=== PATIENT | female | born 1960 | race Caucasian/White ===

== ENCOUNTER 2019-07-20 16:30 | Observation (INO) ==
[2019-07-20] MEDS ORDERED: Isovue-370 500 ML BOTTLE IVP ONE (16:51)
[2019-07-20] MEDS ORDERED: *HR* FentaNYL (PF) 100 MCG/2 ML VIAL IVP ONE (16:53)
[2019-07-20 18:05] LABS: Bilirubin,Urine Moderate (Negative); Blood,Urine Large (Negative); Clarity,Urine Cloudy (Clear); Color,Urine Dark Yellow (Yellow); Glucose,Urine (UA) Normal (Normal); Ketones,Urine 15 mg/dL (Negative); Leukocyte Esterase,Urine Moderate (Negative); Nitrite,Urine Negative (Negative); Protein,Urine 30 mg/dL (Neg-Trace); Specific Gravity,Urine 1.025 (1.010-1.025); Urobilinogen,Urine Normal (Normal)
[2019-07-20 18:22] LABS: WBC,Urine 30-50 per hpf (0-3)
[2019-07-20 18:23] LABS: Bacteria,Urine Many per hpf (None-Few); Calcium Oxalate Crystals,Urine Present; Hyaline Casts,Urine Few per lpf (None-Few)
[2019-07-20 19:43] LABS: Basophils % 0.3 %; Eosinophils # 0.1 K/mcL (0.0-0.6); Eosinophils % 0.5 %; Hematocrit 31.3 % (35.3-44.9); Hemoglobin 10.3 g/dL (11.5-15.4); Immature Granulocytes % 7.5 % (0-4); Lymphocytes # 1.2 K/mcL (0.6-4.6); Lymphocytes % 12.8 %; Mean Corpuscular HGB Conc 32.9 g/dL (31.6-35.5); Mean Corpuscular Hemoglobin 28.4 pg (28.0-33.3); Mean Corpuscular Volume 86.2 fL (83.0-100.0); Monocytes % 11.1 %; Neutrophils # 6.3 K/mcL (1.6-8.9); Nucleated Red Blood Cells 0.2 /100 WBC (0); Platelet Count 324 K/mcL (140-400); Red Blood Count 3.63 M/mcL (3.82-4.97); Red Cell Distribution Width 16.5 % (11.5-14.5); Segmented Neutrophils % 67.8 %; White Blood Count 9.3 K/mcL (4.3-11.1)
[2019-07-20 20:06] LABS: Dohle Bodies Present (Not Present); Toxic Granulation Present (Not Present)
[2019-07-20 20:09] LABS: Alanine Aminotransferase 29 Units/L (7-52); Albumin 2.5 g/dL (3.5-5.7); Albumin/Globulin Ratio 0.8 (1.1-2.2); Alkaline Phosphatase 97 Units/L (34-104); Aspartate Amino Transferase 19 Units/L (13-39); BUN/Creatinine Ratio 26 (6-26); Bilirubin,Direct 0.2 mg/dL (0.0-0.2); Bilirubin,Indirect 0.3 mg/dL (0.0-1.2); Bilirubin,Total 0.5 mg/dL (0.3-1.0); Blood Urea Nitrogen 21 mg/dL (8-23); Calcium 10.6 mg/dL (8.6-10.3); Carbon Dioxide 26 mEq/L (23-29); Chloride 87 mEq/L (98-107); Globulin 3.1 g/dL (2.4-3.5); Glucose 76 mg/dL (70-105); Lipase 13 Units/L (11-82); Osmolality,Calculated 260 (280-300); Potassium 4.1 mEq/L (3.5-5.1); Sodium 124 mEq/L (136-145); Total Protein 5.6 g/dL (6.4-8.9); Troponin I < 0.03 ng/mL (< 0.04); eGFR For African Americans > 60 (> 60); eGFR For Non-African Americans > 60 (> 60)
[2019-07-20] MEDS ORDERED: 0.9 % Sodium Chloride 1,000 ML IVC ONE (22:24)
[2019-07-20] MEDS ORDERED: Ondansetron 4 MG/2 ML VIAL IVP PRN (23:13)
[2019-07-20] MEDS ORDERED: Naloxone 0.4 MG/ML INJ IVP PRN (23:13)
[2019-07-21] MEDS: *HR* Heparin 5,000 UNIT/ML VIAL SQ SCH ×3 (01:09→17:14)
[2019-07-21 01:26] LABS: Hematocrit 28.6 % (35.3-44.9); Hemoglobin 9.4 g/dL (11.5-15.4); Mean Corpuscular HGB Conc 32.9 g/dL (31.6-35.5); Mean Corpuscular Hemoglobin 28.5 pg (28.0-33.3); Mean Corpuscular Volume 86.7 fL (83.0-100.0); Mean Platelet Volume 10.3 fL (9.4-12.4); Monocytes # 1.1 K/mcL (0.0-1.3); Platelet Count 292 K/mcL (140-400); Red Cell Distribution Width 16.4 % (11.5-14.5); White Blood Count 10.7 K/mcL (4.3-11.1)
[2019-07-21 04:11] LABS: Lymphocytes # 1.1 K/mcL (0.6-4.6); Neutrophils # 8.4 K/mcL (1.6-8.9); Platelet Estimate Normal (Normal)
[2019-07-21 04:14] LABS: Dohle Bodies Present (Not Present); Toxic Granulation Present (Not Present)
[2019-07-21 04:58] LABS: Alanine Aminotransferase 23 Units/L (7-52); Albumin 2.3 g/dL (3.5-5.7); Albumin/Globulin Ratio 0.8 (1.1-2.2); Alkaline Phosphatase 85 Units/L (34-104); Aspartate Amino Transferase 16 Units/L (13-39); BUN/Creatinine Ratio 27 (6-26); Bilirubin,Total 0.3 mg/dL (0.3-1.0); Blood Urea Nitrogen 20 mg/dL (8-23); Calcium 9.5 mg/dL (8.6-10.3); Carbon Dioxide 26 mEq/L (23-29); Chloride 91 mEq/L (98-107); Globulin 2.9 g/dL (2.4-3.5); Glucose 70 mg/dL (70-105); Osmolality,Calculated 261 (280-300); Potassium 3.8 mEq/L (3.5-5.1); Sodium 125 mEq/L (136-145); Total Protein 5.2 g/dL (6.4-8.9); eGFR For African Americans > 60 (> 60); eGFR For Non-African Americans > 60 (> 60)
[2019-07-21] MEDS ORDERED: 0.9 % Sodium Chloride 1,000 ML ONE (06:28)
[2019-07-21] MEDS ORDERED: 0.9 % Sodium Chloride 1,000 ML IVC SCH (06:30)
[2019-07-21] MEDS ORDERED: Fluticasone Propionate Nasal 50 MCG/SPRAY BOTTLE NS PRN (07:37)
[2019-07-21] MEDS ORDERED: Propranolol LA (24 HR) 80 MG CAP.SA.24H PO SCH (09:00)
[2019-07-21 09:13] LABS: INR 1.3; Prothrombin Time 14.4 Seconds (9.4-12.1)
[2019-07-21] MEDS: Venlafaxine XR (24 HR) 37.5 MG CAP.ER.24H PO SCH (09:22)
[2019-07-21 09:40] LABS: Thyroid Stimulating Hormone 3.498 mcIU/mL (0.340-5.600)
[2019-07-21] MEDS: Loratadine/Pseudophed (12 HR) 1 EACH TABLET PO SCH ×2 (09:41→20:36)
[2019-07-21] MEDS: Piperacillin/Tazobactam 3.375 GM in 0.9 % Sodium Chloride Mini Bag 100 ML IVPB SCH ×2 (11:57→17:14)
[2019-07-21] MEDS ORDERED: Gadolinium Contrast Agent (WT Based) IV PRN (14:42)
[2019-07-21 20:30] LABS: BUN/Creatinine Ratio 30 (6-26); Blood Urea Nitrogen 24 mg/dL (8-23); Calcium 9.5 mg/dL (8.6-10.3); Carbon Dioxide 24 mEq/L (23-29); Chloride 89 mEq/L (98-107); Glucose 85 mg/dL (70-105); Osmolality,Calculated 263 (280-300); Potassium 3.8 mEq/L (3.5-5.1); Sodium 125 mEq/L (136-145); eGFR For African Americans > 60 (> 60); eGFR For Non-African Americans > 60 (> 60)
[2019-07-21] MEDS ORDERED: Melatonin 3 MG TABLET PO SCH (21:00)
[2019-07-21] MEDS ORDERED: Lidocaine 4% CREAM (LMX) 5 GM TP PRN (22:34)
[2019-07-22] MEDS: *HR* Heparin 5,000 UNIT/ML VIAL SQ SCH ×3 (00:32→16:54)
[2019-07-22] MEDS: Piperacillin/Tazobactam 3.375 GM in 0.9 % Sodium Chloride Mini Bag 100 ML IVPB SCH ×3 (00:33→16:54)
[2019-07-22 04:21] LABS: Hematocrit 26.2 % (35.3-44.9); Hemoglobin 8.5 g/dL (11.5-15.4); Mean Corpuscular HGB Conc 32.4 g/dL (31.6-35.5); Mean Corpuscular Hemoglobin 29.2 pg (28.0-33.3); Mean Platelet Volume 10.5 fL (9.4-12.4); Platelet Count 287 K/mcL (140-400); Red Blood Count 2.91 M/mcL (3.82-4.97); Red Cell Distribution Width 16.9 % (11.5-14.5)
[2019-07-22 04:23] LABS: White Blood Count 20.2 K/mcL (4.3-11.1)
[2019-07-22 04:38] LABS: Lymphocytes # 2.4 K/mcL (0.6-4.6); Monocytes # 0.8 K/mcL (0.0-1.3); Neutrophils # 16.6 K/mcL (1.6-8.9)
[2019-07-22 04:40] LABS: BUN/Creatinine Ratio 32 (6-26); Blood Urea Nitrogen 22 mg/dL (8-23); Calcium 8.9 mg/dL (8.6-10.3); Carbon Dioxide 24 mEq/L (23-29); Chloride 92 mEq/L (98-107); Glucose 82 mg/dL (70-105); Osmolality,Calculated 266 (280-300); Potassium 3.5 mEq/L (3.5-5.1); Sodium 127 mEq/L (136-145); eGFR For African Americans > 60 (> 60); eGFR For Non-African Americans > 60 (> 60)
[2019-07-22] MEDS ORDERED: Dexamethasone 10 MG/ML VIAL IVP ONE (07:27)
[2019-07-22] MEDS ORDERED: Pantoprazole 40 MG VIAL IVP SCH (09:00)
[2019-07-22] MEDS: Venlafaxine XR (24 HR) 37.5 MG CAP.ER.24H PO SCH (09:15)
[2019-07-22] MEDS: Loratadine/Pseudophed (12 HR) 1 EACH TABLET PO SCH (10:02)
[2019-07-22] MEDS ORDERED: dexAMETHasone 4 MG TABLET PO SCH (15:00)
[2019-07-22 15:09] VITALS: BP 101/69
== END 2019-07-22 17:23 | disposition critical access hospital (66) ==
LOC: 3ANU 16:30 → EMEROOARM 16:30 → SUATTDRO 23:30 → 3ANU 07-21 00:09
PROVIDERS: ADMIT Internal Medicine; ATTEND Internal Medicine

== ENCOUNTER 2021-02-27 12:21 | Inpatient (IN) ==
[2021-02-27] MEDS ORDERED: 0.9 % Sodium Chloride 1,000 ML IVC ONE ×2 (12:38→15:17)
[2021-02-27 13:13] LABS: Hematocrit 30.9 % (35.3-44.9); Hemoglobin 10.4 g/dL (11.5-15.4); Lymphocytes # 0.6 K/mcL (0.6-4.6); Mean Corpuscular HGB Conc 33.7 g/dL (31.6-35.5); Mean Corpuscular Hemoglobin 32.3 pg (28.0-33.3); Platelet Count 234 K/mcL (140-400); Red Blood Count 3.22 M/mcL (3.82-4.97); Red Cell Distribution Width 14.8 % (11.5-14.5)
[2021-02-27 13:34] LABS: Alanine Aminotransferase 87 Units/L (7-52); Albumin 2.8 g/dL (3.5-5.7); Albumin/Globulin Ratio 1.2 (1.1-2.2); Alkaline Phosphatase 101 Units/L (34-104); Aspartate Amino Transferase 72 Units/L (13-39); BUN/Creatinine Ratio 44 (6-26); Bilirubin,Total 0.3 mg/dL (0.3-1.0); Blood Urea Nitrogen 20 mg/dL (8-23); Carbon Dioxide 20 mEq/L (23-29); Chloride 104 mEq/L (98-107); Globulin 2.4 g/dL (2.4-3.5); Glucose 113 mg/dL (70-105); Magnesium 1.8 mg/dL (1.6-2.6); Osmolality,Calculated 271 (280-300); Potassium 4.2 mEq/L (3.5-5.1); Sodium 129 mEq/L (136-145); Total Protein 5.2 g/dL (6.4-8.9); Troponin I < 0.03 ng/mL (< 0.04); eGFR For African Americans > 60 (> 60); eGFR For Non-African Americans > 60 (> 60)
[2021-02-27 13:44] LABS: Bacteria,Urine Many per hpf (None-Few); Bilirubin,Urine Negative (Negative); Blood,Urine Negative (Negative); Clarity,Urine Turbid (Clear); Color,Urine Yellow (Yellow); Glucose,Urine (UA) Normal (Normal); Hyaline Casts,Urine Few per lpf (None Seen); Ketones,Urine Negative (Negative); Leukocyte Esterase,Urine Negative (Negative); Mucus,Urine Few per lpf (None-Few); Nitrite,Urine Negative (Negative); Protein,Urine Trace mg/dL (Neg-Trace); RBC,Urine 0-3 per hpf (0-3); Specific Gravity,Urine 1.019 (1.010-1.025); Squamous Epithelial Cell,Urine Few per hpf (None-Few); Urobilinogen,Urine Normal (Normal)
[2021-02-27 13:45] LABS: Monocytes # 1.3 K/mcL (0.0-1.3); Neutrophils # 3.1 K/mcL (1.6-8.9); Platelet Estimate Normal (Normal)
[2021-02-27] MEDS ORDERED: 0.9 % Sodium Chloride 1,000 ML ONE (15:13)
[2021-02-27] MEDS ORDERED: Isovue-370 500 ML BOTTLE IVP ONE (15:46)
[2021-02-27] MEDS ORDERED: Albumin 25% 25gram/100mL 25 GM/100 ML IV.SOLN IVPB ONE (16:26)
[2021-02-27] MEDS ORDERED: Piperacillin/Tazobactam 3.375 GM in 0.9 % Sodium Chloride Mini Bag 100 ML IVPB ONE (16:44)
[2021-02-27] MEDS ORDERED: Naloxone 0.4 MG/ML INJ IVP PRN (17:31)
[2021-02-27] MEDS ORDERED: Acetaminophen 325 MG TABLET PO PRN (17:31)
[2021-02-27] MEDS ORDERED: Vancomycin (wt based) 1,000 MG VIAL IVPB SCH (18:00)
[2021-02-27] MEDS: Norepinephrine 4 MG/254 ML IV.SOLN IVC SCH (19:04)
[2021-02-27] MEDS: Pantoprazole 40 MG VIAL IVP SCH (20:04)
[2021-02-27] MEDS: Hydrocortisone Sodium Succ 100 MG/2 ML VIAL IVP SCH (20:06)
[2021-02-27] MEDS: Melatonin 3 MG TABLET PO SCH (20:08)
[2021-02-27] MEDS: *HR* Heparin 5,000 UNIT/ML VIAL SQ SCH (20:08)
[2021-02-27] MEDS: Vancomycin Oral Soln 125 MG/2.5 ML UDC PO SCH ×2 (20:09→23:52)
[2021-02-27] MEDS ORDERED: dexAMETHasone 0.5 MG/5 ML UDC PO SCH (21:00)
[2021-02-27 21:23] LABS: Adenovirus Not Detected (Not Detect); Bordetella Pertussis Not Detected (Not Detect); Chlamydophila pneumoniae Not Detected (Not Detect); Coronavirus 229E Not Detected (Not Detect); Coronavirus HKU1 Not Detected (Not Detect); Coronavirus NL63 Not Detected (Not Detect); Coronavirus OC43 Not Detected (Not Detect); Human Metapneumovirus Not Detected (Not Detect); Human Rhinovirus/Enterovirus Not Detected (Not Detect); Influenza A Subtype 2009 H1 Not Detected (Not Detect); Influenza B Not Detected (Not Detect); Mycoplasma pneumoniae Not Detected (Not Detect); Parainfluenza Virus 1 Not Detected (Not Detect); Parainfluenza Virus 2 Not Detected (Not Detect); Parainfluenza Virus 3 Not Detected (Not Detect); Parainfluenza Virus 4 Not Detected (Not Detect); Respiratory Syncytial Virus Not Detected (Not Detect); SARS-CoV-2 Not Detected (Not Detect)
[2021-02-28] MEDS: MetroNIDAZOLE 500 MG/100 ML 500 MG/100 ML BAG IVPB SCH ×3 (00:01→15:58)
[2021-02-28 00:47] LABS: Hematocrit 30.4 % (35.3-44.9); Hemoglobin 9.6 g/dL (11.5-15.4); Mean Corpuscular HGB Conc 31.6 g/dL (31.6-35.5); Mean Corpuscular Volume 98.1 fL (83.0-100.0); Mean Platelet Volume 9.8 fL (9.4-12.4); Monocytes # 0.7 K/mcL (0.0-1.3); Nucleated Red Blood Cells 0.2 /100 WBC (0); Platelet Count 285 K/mcL (140-400); Red Cell Distribution Width 15.4 % (11.5-14.5)
[2021-02-28 00:52] LABS: White Blood Count 8.9 K/mcL (4.3-11.1)
[2021-02-28 01:05] LABS: BUN/Creatinine Ratio 31 (6-26); Blood Urea Nitrogen 15 mg/dL (8-23); Calcium 8.2 mg/dL (8.6-10.3); Carbon Dioxide 17 mEq/L (23-29); Chloride 112 mEq/L (98-107); Glucose 135 mg/dL (70-105); Magnesium 1.7 mg/dL (1.6-2.6); Osmolality,Calculated 285 (280-300); Potassium 3.8 mEq/L (3.5-5.1); Sodium 136 mEq/L (136-145); eGFR For African Americans > 60 (> 60); eGFR For Non-African Americans > 60 (> 60)
[2021-02-28 01:29] LABS: Lymphocytes # 1.3 K/mcL (0.6-4.6); Neutrophils # 6.6 K/mcL (1.6-8.9); Platelet Estimate Normal (Normal); Reactive Lymphocytes Present (Not Present)
[2021-02-28] MEDS: Norepinephrine 4 MG/254 ML IV.SOLN IVC SCH (04:30)
[2021-02-28] MEDS: *HR* Heparin 5,000 UNIT/ML VIAL SQ SCH ×2 (06:10→17:09)
[2021-02-28] MEDS: Pantoprazole 40 MG VIAL IVP SCH ×2 (06:10→17:13)
[2021-02-28] MEDS: Piperacillin/Tazobactam 3.375 GM in 0.9 % Sodium Chloride Mini Bag 100 ML IVPB SCH ×3 (08:03→15:57)
[2021-02-28] MEDS: Hydrocortisone Sodium Succ 100 MG/2 ML VIAL IVP SCH ×3 (08:12→15:57)
[2021-02-28] MEDS: Vancomycin Oral Soln 125 MG/2.5 ML UDC PO SCH ×4 (08:15→20:02)
[2021-02-28] MEDS: Multivit/Ca/Min/Fe/FA 1 TAB TABLET PO SCH (08:15)
[2021-02-28] MEDS ORDERED: Ringers Solution, Lactated 1,000 ML IVC SCH (09:45)
[2021-02-28] MEDS ORDERED: Perflutren Lipid Microsphere 1.3 ML in 0.9 % Sodium Chloride 8.7 ML IVP PRN (11:15)
[2021-02-28 15:08] LABS: VBG Ionized Calcium 1.18 mmol/L (1.15-1.35)
[2021-02-28 15:25] LABS: Phosphorous 2.6 mg/dL (2.7-4.5)
[2021-02-28 15:47] LABS: BUN/Creatinine Ratio 26 (6-26); Blood Urea Nitrogen 12 mg/dL (8-23); Calcium 7.4 mg/dL (8.6-10.3); Carbon Dioxide 17 mEq/L (23-29); Chloride 111 mEq/L (98-107); Glucose 135 mg/dL (70-105); Osmolality,Calculated 284 (280-300); Potassium 2.8 mEq/L (3.5-5.1); Sodium 136 mEq/L (136-145); eGFR For African Americans > 60 (> 60); eGFR For Non-African Americans > 60 (> 60)
[2021-02-28] MEDS: Melatonin 3 MG TABLET PO SCH (20:02)
[2021-02-28] MEDS: *HR* OxyCODONE Immed Rel 5 MG TABLET PO PRN (21:32)
[2021-02-28 21:42] LABS: Adenovirus F 40/41 PCR Not detected (Not detect); Astrovirus PCR Not detected (Not detect); Campylobacter by PCR Not detected (Not detect); Cryptosporidium by PCR Not detected (Not detect); Cyclospora cayetanensis PCR Not detected (Not detect); E. coli O157 by PCR Not detected (Not detect); Entamoeba histolytica PCR Not detected (Not detect); Enteroaggregative E.coli(EAEC) Not detected (Not detect); Enteropathogenic E.coli(EPEC) Not detected (Not detect); Enterotoxigenic E.coli (ETEC) Not detected (Not detect); Giardia lamblia PCR Not detected (Not detect); Norovirus GI/GII PCR Not detected (Not detect); Plesiomonas shigelloides PCR Not detected (Not detect); Rotavirus A PCR Not detected (Not detect); Salmonella PCR Not detected (Not detect); Sapovirus PCR Not detected (Not detect); Shig/EnteroinvasiveE coli EIEC Not detected (Not detect); Shigalike tox-prod E coli STEC Not detected (Not detect); Vibrio PCR Not detected (Not detect); Vibrio cholerae PCR Not detected (Not detect); Yersinia enterocolitica PCR Not detected (Not detect)
[2021-02-28 21:43] LABS: C.difficile Toxin A/B Gene PCR DETECTED (Not detect)
[2021-03-01] MEDS: MetroNIDAZOLE 500 MG/100 ML 500 MG/100 ML BAG IVPB SCH ×3 (00:08→16:44)
[2021-03-01] MEDS: Piperacillin/Tazobactam 3.375 GM in 0.9 % Sodium Chloride Mini Bag 100 ML IVPB SCH ×3 (00:09→16:42)
[2021-03-01] MEDS: Hydrocortisone Sodium Succ 100 MG/2 ML VIAL IVP SCH ×3 (00:10→21:24)
[2021-03-01 04:16] LABS: BUN/Creatinine Ratio 20 (6-26); Blood Urea Nitrogen 9 mg/dL (8-23); Calcium 6.9 mg/dL (8.6-10.3); Carbon Dioxide 19 mEq/L (23-29); Chloride 112 mEq/L (98-107); Glucose 129 mg/dL (70-105); Osmolality,Calculated 286 (280-300); Phosphorous 3.6 mg/dL (2.7-4.5); Potassium 2.4 mEq/L (3.5-5.1); Sodium 138 mEq/L (136-145); eGFR For African Americans > 60 (> 60); eGFR For Non-African Americans > 60 (> 60)
[2021-03-01] MEDS ORDERED: Potassium Chloride 40 MEQ/200 ML BAG IVPB PRN (04:30)
[2021-03-01] MEDS: *HR* Heparin 5,000 UNIT/ML VIAL SQ SCH ×2 (05:00→16:42)
[2021-03-01] MEDS: Pantoprazole 40 MG VIAL IVP SCH (05:02)
[2021-03-01] MEDS: Multivit/Ca/Min/Fe/FA 1 TAB TABLET PO SCH (08:14)
[2021-03-01] MEDS: *HR* OxyCODONE Immed Rel 5 MG TABLET PO PRN (08:15)
[2021-03-01] MEDS: Vancomycin Oral Soln 125 MG/2.5 ML UDC PO SCH ×4 (08:15→21:23)
[2021-03-01 09:03] LABS: Hematocrit 29.1 % (35.3-44.9); Hemoglobin 9.7 g/dL (11.5-15.4); Lymphocytes # 0.7 K/mcL (0.6-4.6); Mean Corpuscular HGB Conc 33.3 g/dL (31.6-35.5); Mean Corpuscular Hemoglobin 32.7 pg (28.0-33.3); Mean Platelet Volume 9.6 fL (9.4-12.4); Platelet Count 207 K/mcL (140-400); Red Blood Count 2.97 M/mcL (3.82-4.97); Red Cell Distribution Width 15.4 % (11.5-14.5)
[2021-03-01 09:45] LABS: White Blood Count 4.4 K/mcL (4.3-11.1)
[2021-03-01 09:54] LABS: Monocytes # 0.3 K/mcL (0.0-1.3); Neutrophils # 3.4 K/mcL (1.6-8.9); Platelet Estimate Normal (Normal)
[2021-03-01 09:55] LABS: Toxic Granulation Present (Not Present)
[2021-03-01] MEDS ORDERED: Potassium Chloride 40 MEQ in D5% in 0.9% NACL 1,000 ML IVC SCH ×2 (10:45)
[2021-03-01] MEDS ORDERED: Naloxone 0.4 MG/ML INJ IVP PRN (12:23)
[2021-03-01] MEDS ORDERED: *HR* Heparin 5,000 UNIT/ML VIAL ONE (15:39)
[2021-03-01] MEDS: Acetaminophen 325 MG TABLET PO PRN (16:43)
[2021-03-01] MEDS: Melatonin 3 MG TABLET PO SCH (21:23)
[2021-03-02] MEDS: Piperacillin/Tazobactam 3.375 GM in 0.9 % Sodium Chloride Mini Bag 100 ML IVPB SCH ×2 (00:20→09:52)
[2021-03-02] MEDS: MetroNIDAZOLE 500 MG/100 ML 500 MG/100 ML BAG IVPB SCH ×3 (00:20→17:28)
[2021-03-02 00:50] LABS: VBG Ionized Calcium 1.15 mmol/L (1.15-1.35)
[2021-03-02 00:53] LABS: Basophils % 0.3 %; Eosinophils % 0.3 %; Hematocrit 29.2 % (35.3-44.9); Hemoglobin 9.3 g/dL (11.5-15.4); Lymphocytes # 0.9 K/mcL (0.6-4.6); Lymphocytes % 14.6 %; Mean Corpuscular HGB Conc 31.8 g/dL (31.6-35.5); Mean Corpuscular Hemoglobin 31.6 pg (28.0-33.3); Mean Corpuscular Volume 99.3 fL (83.0-100.0); Mean Platelet Volume 9.5 fL (9.4-12.4); Monocytes # 0.5 K/mcL (0.0-1.3); Neutrophils # 4.1 K/mcL (1.6-8.9); Platelet Count 194 K/mcL (140-400); Red Blood Count 2.94 M/mcL (3.82-4.97); Red Cell Distribution Width 15.5 % (11.5-14.5); Segmented Neutrophils % 69.8 %; White Blood Count 5.8 K/mcL (4.3-11.1)
[2021-03-02 01:11] LABS: Hypochromasia Present (Not Present); Platelet Estimate Normal (Normal); Toxic Granulation Present (Not Present)
[2021-03-02 01:22] LABS: Alanine Aminotransferase 67 Units/L (7-52); Albumin 2.1 g/dL (3.5-5.7); Albumin/Globulin Ratio 1.3 (1.1-2.2); Alkaline Phosphatase 60 Units/L (34-104); Aspartate Amino Transferase 31 Units/L (13-39); BUN/Creatinine Ratio 20 (6-26); Bilirubin,Direct 0.1 mg/dL (0.0-0.2); Bilirubin,Indirect 0.1 mg/dL (0.0-1.0); Bilirubin,Total 0.2 mg/dL (0.3-1.0); Blood Urea Nitrogen 10 mg/dL (8-23); Calcium 6.8 mg/dL (8.6-10.3); Carbon Dioxide 18 mEq/L (23-29); Chloride 113 mEq/L (98-107); Globulin 1.6 g/dL (2.4-3.5); Glucose 167 mg/dL (70-105); Magnesium 1.7 mg/dL (1.6-2.6); Osmolality,Calculated 285 (280-300); Phosphorous 1.8 mg/dL (2.7-4.5); Potassium 3.6 mEq/L (3.5-5.1); Sodium 136 mEq/L (136-145); Total Protein 3.7 g/dL (6.4-8.9); eGFR For African Americans > 60 (> 60); eGFR For Non-African Americans > 60 (> 60)
[2021-03-02] MEDS: *HR* Heparin 5,000 UNIT/ML VIAL SQ SCH ×2 (06:08→17:27)
[2021-03-02] MEDS ORDERED: Pantoprazole 40 MG VIAL IVP SCH (09:00)
[2021-03-02] MEDS: Multivit/Ca/Min/Fe/FA 1 TAB TABLET PO SCH (09:52)
[2021-03-02] MEDS: Vancomycin Oral Soln 125 MG/2.5 ML UDC PO SCH ×4 (09:52→21:18)
[2021-03-02] MEDS: Hydrocortisone Sodium Succ 100 MG/2 ML VIAL IVP SCH (09:53)
[2021-03-02] MEDS: *HR* OxyCODONE Immed Rel 5 MG TABLET PO PRN (17:39)
[2021-03-02] MEDS ORDERED: Hydrocortisone Sodium Succ 100 MG/2 ML VIAL IVP SCH (21:00)
[2021-03-02] MEDS: Melatonin 3 MG TABLET PO SCH (21:17)
[2021-03-02] MEDS: Acetaminophen 325 MG TABLET PO PRN (21:18)
[2021-03-03] MEDS: MetroNIDAZOLE 500 MG/100 ML 500 MG/100 ML BAG IVPB SCH ×4 (00:11→23:55)
[2021-03-03 04:32] LABS: Hematocrit 28.6 % (35.3-44.9); Hemoglobin 9.1 g/dL (11.5-15.4); Mean Corpuscular HGB Conc 31.8 g/dL (31.6-35.5); Mean Corpuscular Hemoglobin 31.7 pg (28.0-33.3); Mean Corpuscular Volume 99.7 fL (83.0-100.0); Mean Platelet Volume 9.6 fL (9.4-12.4); Platelet Count 200 K/mcL (140-400); Red Blood Count 2.87 M/mcL (3.82-4.97); Red Cell Distribution Width 15.4 % (11.5-14.5); White Blood Count 7.1 K/mcL (4.3-11.1)
[2021-03-03 04:51] LABS: BUN/Creatinine Ratio 17 (6-26); Blood Urea Nitrogen 12 mg/dL (8-23); Calcium 7.5 mg/dL (8.6-10.3); Carbon Dioxide 20 mEq/L (23-29); Chloride 111 mEq/L (98-107); Glucose 111 mg/dL (70-105); Osmolality,Calculated 282 (280-300); Potassium 3.5 mEq/L (3.5-5.1); Sodium 136 mEq/L (136-145); eGFR For African Americans > 60 (> 60); eGFR For Non-African Americans > 60 (> 60)
[2021-03-03] MEDS: *HR* Heparin 5,000 UNIT/ML VIAL SQ SCH ×2 (05:34→16:35)
[2021-03-03] MEDS ORDERED: Hydrocortisone Sodium Succ 100 MG/2 ML VIAL IVP SCH (09:00)
[2021-03-03] MEDS: Vancomycin Oral Soln 125 MG/2.5 ML UDC PO SCH ×4 (09:04→20:18)
[2021-03-03] MEDS: Multivit/Ca/Min/Fe/FA 1 TAB TABLET PO SCH (09:04)
[2021-03-03] MEDS: Acetaminophen 325 MG TABLET PO PRN (09:06)
[2021-03-03] MEDS ORDERED: Hydrocortisone Sodium Succ 100 MG/2 ML VIAL IVP ONE ×2 (10:00→12:00)
[2021-03-03] MEDS: *HR* OxyCODONE Immed Rel 5 MG TABLET PO PRN ×2 (12:24→21:44)
[2021-03-03] MEDS: Melatonin 3 MG TABLET PO SCH (21:44)
[2021-03-04 05:46] LABS: Hematocrit 27.4 % (35.3-44.9); Mean Corpuscular HGB Conc 32.8 g/dL (31.6-35.5); Mean Corpuscular Hemoglobin 32.5 pg (28.0-33.3); Mean Corpuscular Volume 98.9 fL (83.0-100.0); Mean Platelet Volume 9.6 fL (9.4-12.4); Platelet Count 168 K/mcL (140-400); Red Blood Count 2.77 M/mcL (3.82-4.97); Red Cell Distribution Width 15.6 % (11.5-14.5); White Blood Count 7.2 K/mcL (4.3-11.1)
[2021-03-04] MEDS: *HR* Heparin 5,000 UNIT/ML VIAL SQ SCH (05:51)
[2021-03-04 06:08] LABS: BUN/Creatinine Ratio 24 (6-26); Blood Urea Nitrogen 13 mg/dL (8-23); Calcium 7.6 mg/dL (8.6-10.3); Carbon Dioxide 20 mEq/L (23-29); Chloride 112 mEq/L (98-107); Glucose 99 mg/dL (70-105); Osmolality,Calculated 282 (280-300); Potassium 3.2 mEq/L (3.5-5.1); Sodium 136 mEq/L (136-145); eGFR For African Americans > 60 (> 60); eGFR For Non-African Americans > 60 (> 60)
[2021-03-04 07:27] VITALS: BP 105/67
[2021-03-04] MEDS: Acetaminophen 325 MG TABLET PO PRN (08:45)
[2021-03-04] MEDS: Vancomycin Oral Soln 125 MG/2.5 ML UDC PO SCH ×2 (08:45→12:07)
[2021-03-04] MEDS: MetroNIDAZOLE 500 MG/100 ML 500 MG/100 ML BAG IVPB SCH (08:46)
[2021-03-04] MEDS: Multivit/Ca/Min/Fe/FA 1 TAB TABLET PO SCH (08:46)
[2021-03-04] MEDS ORDERED: Hydrocortisone Sodium Succ 100 MG/2 ML VIAL IVP ONE (10:00)
[2021-03-04] MEDS: *HR* OxyCODONE Immed Rel 5 MG TABLET PO PRN (12:12)
== END 2021-03-04 14:46 | disposition home health service (06) | DRG 371 ==
LOC: SUATTDRO → EMEROOARM 12:21 → 3ANU 12:21 → 2NNU 16:43 → ICNU 17:49 → SUATTDRO 18:07 → ICNU 18:27 → 3ANU 03-01 12:07
PROVIDERS: ADMIT Student in an Organized Health Care Education/Training Program; ATTEND Internal Medicine

== ENCOUNTER 2022-05-17 11:36 | Observation (INO) ==
[2022-05-17 12:51] LABS: Basophils # 0.1 K/mcL (0.0-0.2); Eosinophils # 0.2 K/mcL (0.0-0.6); Eosinophils % 2.9 %; Hematocrit 37.1 % (35.3-44.9); Immature Granulocytes % 0.2 % (0-4); Lymphocytes # 0.5 K/mcL (0.6-4.6); Mean Corpuscular HGB Conc 32.3 g/dL (31.6-35.5); Mean Corpuscular Hemoglobin 32.3 pg (28.0-33.3); Mean Corpuscular Volume 99.7 fL (83.0-100.0); Mean Platelet Volume 9.9 fL (9.4-12.4); Monocytes # 0.6 K/mcL (0.0-1.3); Monocytes % 11.3 %; Neutrophils # 3.9 K/mcL (1.6-8.9); Platelet Count 252 K/mcL (140-400); Red Blood Count 3.72 M/mcL (3.82-4.97); Red Cell Distribution Width 16.8 % (11.5-14.5); Segmented Neutrophils % 75.6 %; White Blood Count 5.2 K/mcL (4.3-11.1)
[2022-05-17 13:29] LABS: BUN/Creatinine Ratio 12 (6-26); Blood Urea Nitrogen 7 mg/dL (8-23); Calcium 11.7 mg/dL (8.6-10.3); Carbon Dioxide 18 mEq/L (23-29); Chloride 105 mEq/L (98-107); Glucose 93 mg/dL (70-105); Osmolality,Calculated 284 (280-300); Potassium 3.5 mEq/L (3.5-5.1); Sodium 138 mEq/L (136-145); eGFR For African Americans > 60 (> 60); eGFR For Non-African Americans > 60 (> 60)
[2022-05-17] MEDS ORDERED: 0.9 % Sodium Chloride 1,000 ML IVC ONE (14:31)
[2022-05-17 15:02] LABS: Bacteria,Urine Few per hpf (None-Few); Bilirubin,Urine Negative (Negative); Blood,Urine Moderate (Negative); Clarity,Urine Clear (Clear); Color,Urine Light-Yellow (Yellow); Glucose,Urine (UA) Normal (Normal); Hyaline Casts,Urine Many per lpf (None Seen); Ketones,Urine 60 mg/dL (Negative); Leukocyte Esterase,Urine Large (Negative); Mucus,Urine Few per lpf (None-Few); Nitrite,Urine Negative (Negative); Protein,Urine Trace mg/dL (Neg-Trace); RBC,Urine 15-30 per hpf (0-3); Squamous Epithelial Cell,Urine Few per hpf (None-Few); Urobilinogen,Urine Normal (Normal); WBC,Urine TNTC per hpf (0-3)
[2022-05-17] MEDS ORDERED: cefTRIAXone 1,000 MG in Water for inj. (sterile) 10 ML IVP ONE (15:31)
[2022-05-17] MEDS ORDERED: Melatonin 3 MG TABLET PO PRN (17:07)
[2022-05-17] MEDS ORDERED: Naloxone 0.4 MG/ML INJ IVP PRN (17:07)
[2022-05-17] MEDS ORDERED: Ondansetron 4 MG/2 ML VIAL IVP PRN (17:07)
[2022-05-17] MEDS ORDERED: Acetaminophen 325 MG TABLET PO PRN (17:07)
[2022-05-17] MEDS ORDERED: Morphine Sulfate 2 MG/ML SYRINGE IVP ONE (17:10)
[2022-05-17] MEDS ORDERED: Ringers Solution, Lactated 1,000 ML IVC SCH (17:45)
[2022-05-17] MEDS ORDERED: methocarbamoL 750 MG TABLET PO PRN (19:04)
[2022-05-17] MEDS ORDERED: *HR* OxyCODONE Immed Rel 5 MG TABLET PO PRN (19:04)
[2022-05-17] MEDS: *HR* Heparin 5,000 UNIT/ML VIAL SQ SCH (19:16)
[2022-05-17] MEDS: Lactobacillus 1 EACH CAP.SPRINK PO SCH (20:35)
[2022-05-17] MEDS: Melatonin 3 MG TABLET PO SCH (20:35)
[2022-05-18] MEDS ORDERED: cefTRIAXone 1,000 MG in 0.9 % Sodium Chloride 10 ML IVPB SCH (05:00)
[2022-05-18] MEDS: *HR* Heparin 5,000 UNIT/ML VIAL SQ SCH ×2 (05:05→18:27)
[2022-05-18] MEDS: Morphine Sulfate ER (12 HR) 15 MG TABLET.ER PO SCH ×2 (05:42→18:27)
[2022-05-18 05:51] LABS: Basophils % 0.8 %; Eosinophils # 0.2 K/mcL (0.0-0.6); Hematocrit 29.8 % (35.3-44.9); Immature Granulocytes % 0.3 % (0-4); Lymphocytes # 0.5 K/mcL (0.6-4.6); Mean Corpuscular HGB Conc 31.9 g/dL (31.6-35.5); Mean Corpuscular Hemoglobin 31.4 pg (28.0-33.3); Mean Corpuscular Volume 98.3 fL (83.0-100.0); Mean Platelet Volume 10.2 fL (9.4-12.4); Monocytes # 0.5 K/mcL (0.0-1.3); Monocytes % 13.5 %; Neutrophils # 2.6 K/mcL (1.6-8.9); Platelet Count 199 K/mcL (140-400); Red Blood Count 3.03 M/mcL (3.82-4.97); Red Cell Distribution Width 16.5 % (11.5-14.5); Segmented Neutrophils % 68.4 %; White Blood Count 3.8 K/mcL (4.3-11.1)
[2022-05-18 05:58] LABS: Hemoglobin 9.5 g/dL (11.5-15.4)
[2022-05-18 06:12] LABS: BUN/Creatinine Ratio 10 (6-26); Blood Urea Nitrogen 5 mg/dL (8-23); Calcium 9.7 mg/dL (8.6-10.3); Carbon Dioxide 19 mEq/L (23-29); Chloride 108 mEq/L (98-107); Glucose 80 mg/dL (70-105); Magnesium 1.2 mg/dL (1.6-2.6); Osmolality,Calculated 288 (280-300); Sodium 141 mEq/L (136-145); eGFR For African Americans > 60 (> 60); eGFR For Non-African Americans > 60 (> 60)
[2022-05-18] MEDS: Lactobacillus 1 EACH CAP.SPRINK PO SCH ×2 (07:37→21:55)
[2022-05-18] MEDS: Multivit/Ca/Min/Fe/FA 1 TAB TABLET PO SCH (07:38)
[2022-05-18] MEDS: Furosemide 40 MG TABLET PO SCH (07:38)
[2022-05-18] MEDS ORDERED: Potassium Chloride Elixir 20 MEQ/15 ML UDC PO ONE (10:50)
[2022-05-18] MEDS: 0.9 % Sodium Chloride 1,000 ML IVC SCH (18:30)
[2022-05-18] MEDS: Tobramycin/Dex Opth DROPS 2.5 ML BOTTLE RIGHT EYE SCH ×2 (18:31→21:56)
[2022-05-18] MEDS: Melatonin 3 MG TABLET PO SCH (21:55)
[2022-05-19 04:30] LABS: Hematocrit 27.5 % (35.3-44.9); Hemoglobin 8.6 g/dL (11.5-15.4); Mean Corpuscular HGB Conc 31.3 g/dL (31.6-35.5); Mean Corpuscular Hemoglobin 31.3 pg (28.0-33.3); Mean Platelet Volume 9.3 fL (9.4-12.4); Platelet Count 171 K/mcL (140-400); Red Blood Count 2.75 M/mcL (3.82-4.97); Red Cell Distribution Width 16.8 % (11.5-14.5); White Blood Count 2.7 K/mcL (4.3-11.1)
[2022-05-19 04:49] LABS: BUN/Creatinine Ratio 10 (6-26); Blood Urea Nitrogen 5 mg/dL (8-23); Calcium 8.6 mg/dL (8.6-10.3); Carbon Dioxide 19 mEq/L (23-29); Chloride 109 mEq/L (98-107); Glucose 68 mg/dL (70-105); Osmolality,Calculated 286 (280-300); Potassium 3.2 mEq/L (3.5-5.1); Sodium 140 mEq/L (136-145); eGFR For African Americans > 60 (> 60); eGFR For Non-African Americans > 60 (> 60)
[2022-05-19] MEDS: *HR* Heparin 5,000 UNIT/ML VIAL SQ SCH ×2 (06:59→17:59)
[2022-05-19] MEDS: Morphine Sulfate ER (12 HR) 15 MG TABLET.ER PO SCH ×2 (06:59→17:48)
[2022-05-19] MEDS ORDERED: cefTRIAXone 1,000 MG in 0.9 % Sodium Chloride Mini Bag 100 ML IVPB SCH (09:00)
[2022-05-19] MEDS: Lactobacillus 1 EACH CAP.SPRINK PO SCH (09:01)
[2022-05-19] MEDS: Multivit/Ca/Min/Fe/FA 1 TAB TABLET PO SCH (09:02)
[2022-05-19] MEDS: Tobramycin/Dex Opth DROPS 2.5 ML BOTTLE RIGHT EYE SCH ×3 (09:04→17:49)
[2022-05-19 09:18] LABS: Magnesium 1.6 mg/dL (1.6-2.6); Potassium 3.3 mEq/L (3.5-5.1)
[2022-05-19] MEDS: Furosemide 40 MG TABLET PO SCH (09:20)
[2022-05-19] MEDS ORDERED: Acetaminophen 325 MG TABLET PO PRN (09:49)
[2022-05-19] MEDS ORDERED: *HR* OxyCODONE Immed Rel 5 MG TABLET PO PRN (09:50)
[2022-05-19] MEDS: 0.9 % Sodium Chloride 1,000 ML IVC SCH (13:59)
[2022-05-19] MEDS ORDERED: Morphine Sulfate Oral CONC 10 MG/0.5 ML ORAL.SYG SL PRN (14:32)
[2022-05-19 15:44] VITALS: BP 116/74; PULSE 88; TEMP 99; O2SAT 98
== END 2022-05-19 18:26 | disposition home or self-care (01) ==
LOC: EMEROOARM 11:36 → 2ANU 11:36 → SUATTDRO 05-18 07:57 → 2ANU 05-18 08:45
PROVIDERS: ADMIT Internal Medicine; ATTEND Internal Medicine

== ENCOUNTER 2022-07-12 13:42 | Inpatient (IN) ==
[2022-07-12] MEDS ORDERED: Iopamidol - 370 500 ML MLS IVP ONE (17:37)
[2022-07-12] MEDS ORDERED: Ringers Solution, Lactated 1,000 ML IVC ONE (19:22)
[2022-07-12 20:05] LABS: Bilirubin,Urine Negative (Negative); Blood,Urine Trace (Negative); Clarity,Urine Clear (Clear); Color,Urine Colorless (Yellow); Glucose,Urine (UA) Normal (Normal); Ketones,Urine Negative (Negative); Leukocyte Esterase,Urine Negative (Negative); Mucus,Urine Few per lpf (None-Few); Nitrite,Urine Negative (Negative); Protein,Urine Trace mg/dL (Neg-Trace); RBC,Urine 0-3 per hpf (0-3); Specific Gravity,Urine 1.009 (1.010-1.025); Urobilinogen,Urine Normal (Normal)
[2022-07-12 20:38] LABS: Influenza A PCR Negative (Negative); Influenza B PCR Negative (Negative); Resp. Syncytial Virus PCR Negative (Negative)
[2022-07-12 20:53] LABS: Basophils % 0.1 %; Eosinophils % 0.1 %; Hematocrit 16.4 % (35.3-44.9); Immature Granulocytes % 0.4 % (0-4); Lymphocytes # 0.3 K/mcL (0.6-4.6); Lymphocytes % 4.6 %; Mean Corpuscular HGB Conc 30.5 g/dL (31.6-35.5); Mean Corpuscular Hemoglobin 29.4 pg (28.0-33.3); Mean Corpuscular Volume 96.5 fL (83.0-100.0); Mean Platelet Volume 9.6 fL (9.4-12.4); Monocytes # 0.6 K/mcL (0.0-1.3); Monocytes % 9.2 %; Neutrophils # 5.8 K/mcL (1.6-8.9); Nucleated Red Blood Cells 0.4 /100 WBC (0); Platelet Count 348 K/mcL (140-400); Red Cell Distribution Width 17.5 % (11.5-14.5); Segmented Neutrophils % 85.6 %; White Blood Count 6.8 K/mcL (4.3-11.1)
[2022-07-12 21:07] LABS: Alanine Aminotransferase 17 Units/L (7-52); Albumin 3.4 g/dL (3.5-5.7); Albumin/Globulin Ratio 1.1 (1.1-2.2); Alkaline Phosphatase 68 Units/L (34-104); Aspartate Amino Transferase 13 Units/L (13-39); BUN/Creatinine Ratio 28 (6-26); Bilirubin,Direct 0.1 mg/dL (0.0-0.2); Bilirubin,Indirect 0.2 mg/dL (0.0-1.0); Bilirubin,Total 0.3 mg/dL (0.3-1.0); Blood Urea Nitrogen 31 mg/dL (8-23); Calcium 12.9 mg/dL (8.6-10.3); Carbon Dioxide 26 mEq/L (23-29); Chloride 96 mEq/L (98-107); Globulin 3.1 g/dL (2.4-3.5); Glucose 109 mg/dL (70-105); Lipase 5 Units/L (11-82); Magnesium 1.5 mg/dL (1.6-2.6); Osmolality,Calculated 279 (280-300); Potassium 2.9 mEq/L (3.5-5.1); Sodium 131 mEq/L (136-145); Total Protein 6.5 g/dL (6.4-8.9); Troponin I < 0.03 ng/mL (< 0.04)
[2022-07-12 21:26] LABS: Anisocytosis 1+ (Not Present); Hypochromasia Present (Not Present); Large Platelets Present (Not Present); Platelet Estimate Normal (Normal); Stomatocytes 1+ (Not Present)
[2022-07-12 21:27] LABS: Microcytosis Present (Not Present)
[2022-07-12 21:52] LABS: SARS-CoV-2 by PCR (In House) Negative (Negative)
[2022-07-12] MEDS ORDERED: Potassium Chloride Elixir 20 MEQ/15 ML UDC PO ONE (22:33)
[2022-07-13] MEDS ORDERED: 0.9 % Sodium Chloride 250 ML ONE (00:27)
[2022-07-13] MEDS ORDERED: predniSONE 20 MG TABLET PO ONE (01:38)
[2022-07-13] MEDS ORDERED: Melatonin 3 MG TABLET PO PRN (01:50)
[2022-07-13] MEDS ORDERED: Naloxone 0.4 MG/ML INJ IVP PRN (01:50)
[2022-07-13] MEDS ORDERED: 0.9 % Sodium Chloride 1,000 ML IVC SCH (03:00)
[2022-07-13 05:19] LABS: Basophils % 0.2 %; Monocytes % 1.9 %
[2022-07-13 05:21] LABS: Hematocrit 18.5 % (35.3-44.9); Lymphocytes # 0.1 K/mcL (0.6-4.6); Lymphocytes % 1.2 %; Mean Corpuscular HGB Conc 30.3 g/dL (31.6-35.5); Mean Corpuscular Hemoglobin 29.2 pg (28.0-33.3); Mean Corpuscular Volume 96.4 fL (83.0-100.0); Mean Platelet Volume 9.7 fL (9.4-12.4); Monocytes # 0.1 K/mcL (0.0-1.3); Nucleated Red Blood Cells 1.7 /100 WBC (0); Platelet Count 342 K/mcL (140-400); Red Blood Count 1.92 M/mcL (3.82-4.97); Red Cell Distribution Width 17.2 % (11.5-14.5); Segmented Neutrophils % 95.7 %; White Blood Count 4.2 K/mcL (4.3-11.1)
[2022-07-13 05:30] LABS: INR 1.2; Prothrombin Time 13.3 Seconds (9.4-12.1)
[2022-07-13 05:32] LABS: Activated Partial Thrombo Time 22.5 Seconds (26.0-36.0)
[2022-07-13 05:35] LABS: % Iron Saturation 4 % (15-50); Iron 11 mcg/dL (50-170); Transferrin 216 mg/dL (203-362)
[2022-07-13 05:39] LABS: Bilirubin,Direct 0.1 mg/dL (0.0-0.2); Bilirubin,Indirect 0.2 mg/dL (0.0-1.0); Bilirubin,Total 0.3 mg/dL (0.3-1.0)
[2022-07-13 05:42] LABS: Bilirubin,Total 0.3 mg/dL (0.3-1.0); Calcium 12.6 mg/dL (8.6-10.3); Globulin 3.1 g/dL (2.4-3.5); Magnesium 1.4 mg/dL (1.6-2.6); Phosphorous 2.3 mg/dL (2.7-4.5); Potassium 3.1 mEq/L (3.5-5.1); Total Protein 6.1 g/dL (6.4-8.9)
[2022-07-13 06:01] LABS: Folate 9.2 ng/mL (3.0-16.0)
[2022-07-13 06:07] LABS: Hemoglobin 5.6 g/dL (11.5-15.4); Vitamin B12 > 1500 pg/mL (250-1100)
[2022-07-13] MEDS ORDERED: Acetaminophen 325 MG TABLET PO ONE (09:53)
[2022-07-13] MEDS: 0.9 % Sodium Chloride 1,000 ML IVC SCH ×2 (15:03→22:02)
[2022-07-13] MEDS: Acetaminophen 325 MG TABLET PO PRN (16:42)
[2022-07-13] MEDS: *HR* OxyCODONE Immed Rel 5 MG TABLET PO PRN (17:49)
[2022-07-13] MEDS: Morphine Sulfate ER (12 HR) 15 MG TABLET.ER PO SCH (17:49)
[2022-07-13 19:50] LABS: Hematocrit 19.8 % (35.3-44.9); Hemoglobin 6.4 g/dL (11.5-15.4)
[2022-07-14] MEDS: Ondansetron ODT 4 MG TAB.RAPDIS SL PRN ×2 (00:40→08:48)
[2022-07-14] MEDS: 0.9 % Sodium Chloride 1,000 ML IVC SCH (04:58)
[2022-07-14] MEDS: Morphine Sulfate ER (12 HR) 15 MG TABLET.ER PO SCH ×2 (04:59→16:22)
[2022-07-14 05:54] LABS: Hematocrit 18.6 % (35.3-44.9); Mean Corpuscular HGB Conc 32.3 g/dL (31.6-35.5); Mean Corpuscular Hemoglobin 30.5 pg (28.0-33.3); Mean Corpuscular Volume 94.4 fL (83.0-100.0); Mean Platelet Volume 9.5 fL (9.4-12.4); Platelet Count 240 K/mcL (140-400); Red Blood Count 1.97 M/mcL (3.82-4.97); Red Cell Distribution Width 16.5 % (11.5-14.5)
[2022-07-14 06:12] LABS: Albumin 2.4 g/dL (3.5-5.7); Bilirubin,Indirect 0.2 mg/dL (0.0-1.0); Bilirubin,Total 0.2 mg/dL (0.3-1.0); Calcium 9.2 mg/dL (8.6-10.3); Globulin 2.3 g/dL (2.4-3.5); Magnesium 1.8 mg/dL (1.6-2.6); Phosphorous 2.1 mg/dL (2.7-4.5); Potassium 2.6 mEq/L (3.5-5.1); Total Protein 4.7 g/dL (6.4-8.9)
[2022-07-14] MEDS: Acetaminophen 325 MG TABLET PO PRN (08:48)
[2022-07-14] MEDS ORDERED: 0.9 % Sodium Chloride 250 ML ONE (08:49)
[2022-07-14] MEDS ORDERED: *HR* Promethazine 25 MG/ML VIAL IM PRN (09:00)
[2022-07-14] MEDS ORDERED: methocarbamoL 750 MG TABLET PO PRN (10:55)
[2022-07-14] MEDS ORDERED: Ondansetron 4 MG/2 ML VIAL IVP SCH (12:00)
[2022-07-14 13:26] LABS: Hematocrit 26.7 % (35.3-44.9)
[2022-07-14 13:30] LABS: Basophils % 0.1 %; Eosinophils % 0.4 %; Immature Granulocytes % 0.4 % (0-4); Lymphocytes # 0.3 K/mcL (0.6-4.6); Lymphocytes % 4.7 %; Mean Corpuscular Volume 91.1 fL (83.0-100.0); Mean Platelet Volume 8.9 fL (9.4-12.4); Monocytes # 0.6 K/mcL (0.0-1.3); Monocytes % 7.8 %; Neutrophils # 6.2 K/mcL (1.6-8.9); Platelet Count 266 K/mcL (140-400); Red Blood Count 2.93 M/mcL (3.82-4.97); Segmented Neutrophils % 86.6 %; White Blood Count 7.2 K/mcL (4.3-11.1)
[2022-07-14 13:32] LABS: Hemoglobin 8.7 g/dL (11.5-15.4)
[2022-07-14 13:33] LABS: Bacteria,Urine Few per hpf (None-Few); Bilirubin,Urine Negative (Negative); Blood,Urine Small (Negative); Clarity,Urine Clear (Clear); Color,Urine Light-Yellow (Yellow); Glucose,Urine (UA) Normal (Normal); Ketones,Urine Negative (Negative); Leukocyte Esterase,Urine Negative (Negative); Nitrite,Urine Negative (Negative); Protein,Urine Negative (Neg-Trace); Specific Gravity,Urine 1.011 (1.010-1.025); Urobilinogen,Urine Normal (Normal); WBC,Urine 0-3 per hpf (0-3)
[2022-07-14] MEDS ORDERED: *HR* Promethazine 25 MG/ML VIAL IM ONE (13:33)
[2022-07-14 14:00] LABS: Calcium 9.3 mg/dL (8.6-10.3); Potassium 3.5 mEq/L (3.5-5.1)
[2022-07-14] MEDS: Ondansetron 4 MG/2 ML VIAL IVP SCH ×2 (16:24→20:10)
[2022-07-14] MEDS ORDERED: Mirtazapine 15 MG TABLET PO SCH (21:00)
[2022-07-14] MEDS ORDERED: NON-FORMULARY MEDICATION 1 EACH EACH (Calcium Carbonate/Vitamin D3 [Calcium 600 + Vit D So PO SCH (21:00)
[2022-07-14 22:33] LABS: Hematocrit 24.7 % (35.3-44.9); Hemoglobin 7.9 g/dL (11.5-15.4)
[2022-07-15] MEDS: Ondansetron 4 MG/2 ML VIAL IVP SCH ×7 (01:15→23:38)
[2022-07-15 03:30] LABS: Eosinophils # 0.1 K/mcL (0.0-0.6); Eosinophils % 1.2 %; Hematocrit 24.6 % (35.3-44.9); Hemoglobin 7.9 g/dL (11.5-15.4); Immature Granulocytes % 0.5 % (0-4); Lymphocytes # 0.4 K/mcL (0.6-4.6); Lymphocytes % 6.4 %; Mean Corpuscular HGB Conc 32.1 g/dL (31.6-35.5); Mean Corpuscular Hemoglobin 29.5 pg (28.0-33.3); Mean Corpuscular Volume 91.8 fL (83.0-100.0); Mean Platelet Volume 9.4 fL (9.4-12.4); Monocytes # 0.4 K/mcL (0.0-1.3); Monocytes % 6.8 %; Neutrophils # 4.9 K/mcL (1.6-8.9); Nucleated Red Blood Cells 0.3 /100 WBC (0); Platelet Count 264 K/mcL (140-400); Red Blood Count 2.68 M/mcL (3.82-4.97); Segmented Neutrophils % 85.1 %; White Blood Count 5.7 K/mcL (4.3-11.1)
[2022-07-15 03:57] LABS: Calcium 8.4 mg/dL (8.6-10.3); Potassium 3.7 mEq/L (3.5-5.1)
[2022-07-15] MEDS: Morphine Sulfate ER (12 HR) 15 MG TABLET.ER PO SCH ×2 (04:07→16:07)
[2022-07-15] MEDS: 0.9 % Sodium Chloride 1,000 ML IVC SCH ×3 (07:01→17:00)
[2022-07-15] MEDS ORDERED: *HR* Dextrose 25% in Water (Syg) 10 ML SYRINGE IVP STA (07:41)
[2022-07-15] MEDS ORDERED: Dextrose Gel 15 GM/37.5 ML TUBE PO PRN ×2 (07:43)
[2022-07-15] MEDS ORDERED: D5% in Water 1,000 ML IVC PRN (07:43)
[2022-07-15] MEDS ORDERED: *HR* Dextrose 50 % in Water (Syg) 50 ML SYRINGE IVP PRN (07:43)
[2022-07-15] MEDS: Cyanocobalamin (B-12) 1,000 MCG TABLET PO SCH (07:57)
[2022-07-15] MEDS: Lactobacillus 1 EACH CAP.SPRINK PO SCH (07:57)
[2022-07-15] MEDS: Multivit/Ca/Min/Fe/FA 1 TAB TABLET PO SCH (07:57)
[2022-07-15] MEDS ORDERED: Furosemide 40 MG TABLET PO SCH (09:00)
[2022-07-15] MEDS ORDERED: Cholecalciferol (D-3) 1,000 UNIT (25MCG) TABLET PO SCH (09:00)
[2022-07-15] MEDS: Potassium Chloride 10 MEQ in D5% in 0.9% NACL 1,000 ML IVC SCH ×2 (09:15→23:38)
[2022-07-15 09:21] LABS: Magnesium 2.2 mg/dL (1.6-2.6); Phosphorous 3.4 mg/dL (2.7-4.5)
[2022-07-15] MEDS: dexAMETHasone 0.5 MG/5 ML UDC PO SCH ×3 (09:58→20:01)
[2022-07-15] MEDS: Stomatitis Mixture 5 ML UDC PO SCH ×4 (09:58→20:04)
[2022-07-15] MEDS: Iron Sucrose Complex 250 MG in 0.9 % Sodium Chloride 250 ML IVPB SCH (11:48)
[2022-07-15] MEDS: *HR* OxyCODONE Immed Rel 5 MG TABLET PO PRN (14:07)
[2022-07-15] MEDS: Mirtazapine 15 MG TABLET PO SCH (20:00)
[2022-07-16 03:59] LABS: Basophils % 0.2 %; Eosinophils % 0.2 %; Hematocrit 22.4 % (35.3-44.9); Hemoglobin 7.2 g/dL (11.5-15.4); Immature Granulocytes % 0.6 % (0-4); Lymphocytes # 0.2 K/mcL (0.6-4.6); Lymphocytes % 4.4 %; Mean Corpuscular HGB Conc 32.1 g/dL (31.6-35.5); Mean Corpuscular Hemoglobin 29.1 pg (28.0-33.3); Mean Corpuscular Volume 90.7 fL (83.0-100.0); Mean Platelet Volume 9.3 fL (9.4-12.4); Monocytes # 0.3 K/mcL (0.0-1.3); Monocytes % 6.7 %; Neutrophils # 4.2 K/mcL (1.6-8.9); Platelet Count 240 K/mcL (140-400); Red Blood Count 2.47 M/mcL (3.82-4.97); Red Cell Distribution Width 17.5 % (11.5-14.5); Segmented Neutrophils % 87.9 %; White Blood Count 4.8 K/mcL (4.3-11.1)
[2022-07-16 04:43] LABS: Calcium 7.7 mg/dL (8.6-10.3); Magnesium 1.5 mg/dL (1.6-2.6); Phosphorous 1.5 mg/dL (2.7-4.5); Potassium 3.4 mEq/L (3.5-5.1)
[2022-07-16] MEDS: Ondansetron 4 MG/2 ML VIAL IVP SCH ×5 (04:52→19:33)
[2022-07-16] MEDS: Morphine Sulfate ER (12 HR) 15 MG TABLET.ER PO SCH ×2 (04:52→16:32)
[2022-07-16] MEDS: *HR* OxyCODONE Immed Rel 5 MG TABLET PO PRN (08:58)
[2022-07-16] MEDS: dexAMETHasone 0.5 MG/5 ML UDC PO SCH ×3 (08:58→19:34)
[2022-07-16] MEDS: Stomatitis Mixture 5 ML UDC PO SCH ×4 (08:59→19:35)
[2022-07-16] MEDS: Lactobacillus 1 EACH CAP.SPRINK PO SCH (08:59)
[2022-07-16] MEDS: Cyanocobalamin (B-12) 1,000 MCG TABLET PO SCH (08:59)
[2022-07-16] MEDS: Multivit/Ca/Min/Fe/FA 1 TAB TABLET PO SCH (08:59)
[2022-07-16] MEDS: Iron Sucrose Complex 250 MG in 0.9 % Sodium Chloride 250 ML IVPB SCH (09:09)
[2022-07-16] MEDS: Potassium Chloride 10 MEQ in D5% in 0.9% NACL 1,000 ML IVC SCH (13:00)
[2022-07-16] MEDS: Mirtazapine 15 MG TABLET PO SCH (19:34)
[2022-07-17] MEDS: Ondansetron 4 MG/2 ML VIAL IVP SCH ×7 (00:15→23:10)
[2022-07-17 03:58] LABS: Basophils % 0.2 %; Eosinophils # 0.1 K/mcL (0.0-0.6); Hematocrit 22.7 % (35.3-44.9); Hemoglobin 7.2 g/dL (11.5-15.4); Immature Granulocytes % 2.1 % (0-4); Lymphocytes # 0.3 K/mcL (0.6-4.6); Lymphocytes % 5.3 %; Mean Corpuscular HGB Conc 31.7 g/dL (31.6-35.5); Mean Corpuscular Hemoglobin 28.9 pg (28.0-33.3); Mean Corpuscular Volume 91.2 fL (83.0-100.0); Mean Platelet Volume 9.6 fL (9.4-12.4); Monocytes # 0.5 K/mcL (0.0-1.3); Monocytes % 8.4 %; Neutrophils # 4.8 K/mcL (1.6-8.9); Nucleated Red Blood Cells 0.5 /100 WBC (0); Platelet Count 286 K/mcL (140-400); Red Blood Count 2.49 M/mcL (3.82-4.97); Red Cell Distribution Width 17.2 % (11.5-14.5); White Blood Count 5.8 K/mcL (4.3-11.1)
[2022-07-17 04:12] LABS: Calcium 7.8 mg/dL (8.6-10.3); Magnesium 1.8 mg/dL (1.6-2.6); Phosphorous 1.2 mg/dL (2.7-4.5); Potassium 3.6 mEq/L (3.5-5.1)
[2022-07-17] MEDS: Morphine Sulfate ER (12 HR) 15 MG TABLET.ER PO SCH ×2 (05:31→17:39)
[2022-07-17] MEDS ORDERED: 0.9 % Sodium Chloride 500 ML ONE (05:39)
[2022-07-17] MEDS: Lactobacillus 1 EACH CAP.SPRINK PO SCH (08:22)
[2022-07-17] MEDS: Cyanocobalamin (B-12) 1,000 MCG TABLET PO SCH (08:22)
[2022-07-17] MEDS: Multivit/Ca/Min/Fe/FA 1 TAB TABLET PO SCH (08:22)
[2022-07-17] MEDS: dexAMETHasone 0.5 MG/5 ML UDC PO SCH ×4 (08:23→21:51)
[2022-07-17] MEDS: Stomatitis Mixture 5 ML UDC PO SCH ×4 (08:23→20:00)
[2022-07-17] MEDS: Iron Sucrose Complex 250 MG in 0.9 % Sodium Chloride 250 ML IVPB SCH (10:45)
[2022-07-17 19:22] LABS: Hematocrit 24.6 % (35.3-44.9); Hemoglobin 7.9 g/dL (11.5-15.4)
[2022-07-17] MEDS: *HR* OxyCODONE Immed Rel 5 MG TABLET PO PRN (19:59)
[2022-07-17] MEDS: Mirtazapine 15 MG TABLET PO SCH (19:59)
[2022-07-18 02:51] LABS: Basophils % 0.2 %; Eosinophils # 0.1 K/mcL (0.0-0.6); Hematocrit 24.6 % (35.3-44.9); Hemoglobin 7.8 g/dL (11.5-15.4); Immature Granulocytes % 1.7 % (0-4); Lymphocytes # 0.3 K/mcL (0.6-4.6); Lymphocytes % 4.2 %; Mean Corpuscular HGB Conc 31.7 g/dL (31.6-35.5); Mean Corpuscular Hemoglobin 29.2 pg (28.0-33.3); Mean Corpuscular Volume 92.1 fL (83.0-100.0); Mean Platelet Volume 9.8 fL (9.4-12.4); Monocytes # 0.6 K/mcL (0.0-1.3); Monocytes % 7.4 %; Neutrophils # 6.9 K/mcL (1.6-8.9); Nucleated Red Blood Cells 0.2 /100 WBC (0); Platelet Count 335 K/mcL (140-400); Red Blood Count 2.67 M/mcL (3.82-4.97); Red Cell Distribution Width 17.5 % (11.5-14.5); Segmented Neutrophils % 85.5 %; White Blood Count 8.1 K/mcL (4.3-11.1)
[2022-07-18 03:11] LABS: BUN/Creatinine Ratio 14 (6-26); Blood Urea Nitrogen 10 mg/dL (8-23); Calcium 7.8 mg/dL (8.6-10.3); Carbon Dioxide 20 mEq/L (23-29); Chloride 111 mEq/L (98-107); Glucose 86 mg/dL (70-105); Magnesium 1.8 mg/dL (1.6-2.6); Osmolality,Calculated 278 (280-300); Phosphorous 1.3 mg/dL (2.7-4.5); Potassium 3.9 mEq/L (3.5-5.1); Sodium 135 mEq/L (136-145)
[2022-07-18] MEDS: Morphine Sulfate ER (12 HR) 15 MG TABLET.ER PO SCH (05:09)
[2022-07-18] MEDS: Ondansetron 4 MG/2 ML VIAL IVP SCH ×3 (05:09→11:44)
[2022-07-18 06:54] VITALS: BP 153/71; PULSE 95; TEMP 97.3; O2SAT 97
[2022-07-18] MEDS: Multivit/Ca/Min/Fe/FA 1 TAB TABLET PO SCH (07:49)
[2022-07-18] MEDS: Cyanocobalamin (B-12) 1,000 MCG TABLET PO SCH (07:50)
[2022-07-18] MEDS: Lactobacillus 1 EACH CAP.SPRINK PO SCH (07:50)
[2022-07-18] MEDS: *HR* OxyCODONE Immed Rel 5 MG TABLET PO PRN (07:52)
[2022-07-18] MEDS: Stomatitis Mixture 5 ML UDC PO SCH ×2 (07:53→11:44)
[2022-07-18] MEDS: dexAMETHasone 0.5 MG/5 ML UDC PO SCH (07:53)
== END 2022-07-18 12:25 | disposition home or self-care (01) | DRG 812 ==
LOC: 2NENU 13:42 → EMEROOARM 13:42 → SUATTDRO 07-13 00:23 → 2NENU 07-13 03:40
PROVIDERS: ADMIT Internal Medicine; ATTEND Pharmacist

== ENCOUNTER 2022-07-22 08:15 | Inpatient (IN) ==
[2022-07-22] MEDS ORDERED: Ondansetron 4 MG/2 ML VIAL IVP ONE ×2 (08:46→14:43)
[2022-07-22] MEDS ORDERED: 0.9 % Sodium Chloride 1,000 ML IVC ONE (08:46)
[2022-07-22] MEDS ORDERED: Morphine Sulfate 2 MG/ML SYRINGE IVP ONE (08:46)
[2022-07-22] MEDS ORDERED: Iopamidol - 370 500 ML MLS IVP ONE (08:47)
[2022-07-22 09:09] LABS: Bilirubin,Urine Negative (Negative); Blood,Urine Moderate (Negative); Clarity,Urine Clear (Clear); Color,Urine Colorless (Yellow); Glucose,Urine (UA) Normal (Normal); Ketones,Urine Negative (Negative); Leukocyte Esterase,Urine Trace (Negative); Mucus,Urine Few per lpf (None-Few); Nitrite,Urine Negative (Negative); PH,Urine 6.5 pH Units (5.0-8.0); Protein,Urine Negative (Neg-Trace); RBC,Urine 30-50 per hpf (0-3); Squamous Epithelial Cell,Urine Few per hpf (None-Few); Urobilinogen,Urine Normal (Normal); WBC,Urine 15-30 per hpf (0-3)
[2022-07-22 09:11] LABS: Basophils % 0.2 %
[2022-07-22 09:13] LABS: Lymphocytes % 5.5 %
[2022-07-22 09:16] LABS: Eosinophils % 0.5 %; Hematocrit 33.6 % (35.3-44.9); Hemoglobin 10.6 g/dL (11.5-15.4); Immature Granulocytes % 0.6 % (0-4); Immature Platelets 1.6 % (1.1-6.1); Lymphocytes # 0.5 K/mcL (0.6-4.6); Mean Corpuscular HGB Conc 31.5 g/dL (31.6-35.5); Mean Corpuscular Hemoglobin 30.2 pg (28.0-33.3); Mean Corpuscular Volume 95.7 fL (83.0-100.0); Mean Platelet Volume 9.8 fL (9.4-12.4); Monocytes # 0.3 K/mcL (0.0-1.3); Monocytes % 3.9 %; Neutrophils # 7.4 K/mcL (1.6-8.9); Platelet Count 375 K/mcL (140-400); Red Blood Count 3.51 M/mcL (3.82-4.97); Segmented Neutrophils % 89.3 %; White Blood Count 8.3 K/mcL (4.3-11.1)
[2022-07-22 10:06] LABS: Potassium 3.5 mEq/L (3.5-5.1)
[2022-07-22 10:40] LABS: Albumin 3.4 g/dL (3.5-5.7); Albumin/Globulin Ratio 1.1 (1.1-2.2); Bilirubin,Direct 0.1 mg/dL (0.0-0.2); Bilirubin,Indirect 0.3 mg/dL (0.0-1.0); Bilirubin,Total 0.4 mg/dL (0.3-1.0); Globulin 3.1 g/dL (2.4-3.5); Total Protein 6.5 g/dL (6.4-8.9)
[2022-07-22] MEDS ORDERED: Piperacillin/Tazobactam 3.375 GM in 0.9 % Sodium Chloride Mini Bag 100 ML IVPB ONE (11:45)
[2022-07-22] MEDS ORDERED: Ondansetron 4 MG/2 ML VIAL IVP PRN ×2 (14:05→20:11)
[2022-07-22] MEDS ORDERED: Naloxone 0.4 MG/ML INJ IVP PRN (14:05)
[2022-07-22] MEDS ORDERED: Morphine Sulfate 2 MG/ML SYRINGE IVP PRN (14:06)
[2022-07-22] MEDS ORDERED: 0.9 % Sodium Chloride 1,000 ML IVC SCH (14:15)
[2022-07-22] MEDS ORDERED: *HR* HYDROmorphone (PF) 1 MG/ML SYRINGE IVP STA (14:42)
[2022-07-22] MEDS ORDERED: Ringers Solution, Lactated 1,000 ML IVC SCH (14:45)
[2022-07-22] MEDS: *HR* HYDROmorphone 2 MG/ML SYRINGE IVP PRN ×2 (17:28→18:35)
[2022-07-22] MEDS ORDERED: Pantoprazole 40 MG VIAL IVP SCH (18:00)
[2022-07-22] MEDS: Pantoprazole 40 MG VIAL IVP SCH (18:34)
[2022-07-22] MEDS ORDERED: Lidocaine -MPF 2% 2 ML VIAL ONE (19:12)
[2022-07-22] MEDS ORDERED: *HR* FentaNYL (PF) 100 MCG/2 ML VIAL ONE (19:12)
[2022-07-22] MEDS ORDERED: Ondansetron 4 MG/2 ML VIAL ONE (19:12)
[2022-07-22] MEDS ORDERED: *HR* Rocuronium Bromide 50 MG/5 ML VIAL ONE (19:12)
[2022-07-22] MEDS ORDERED: *HR* Propofol 200 MG/20 ML VIAL IVP ONE (19:12)
[2022-07-22] MEDS ORDERED: *HR* Midazolam HCl 2 MG/2 ML VIAL ONE (19:12)
[2022-07-22] MEDS ORDERED: Ketamine HCL *QUVA* 50mg (1mL) SYRINGE ONE (19:12)
[2022-07-22] MEDS ORDERED: Famotidine 20 MG/2 ML VIAL IVP ONE (19:13)
[2022-07-22] MEDS ORDERED: Acetaminophen IV 1,000 MG/100 ML BAG IVPB ONE ×2 (19:14→19:19)
[2022-07-22] MEDS ORDERED: Famotidine 20 MG/2 ML VIAL ONE (19:19)
[2022-07-22] MEDS ORDERED: *HR* HYDROmorphone PF 0.5 MG/0.5 ML SYRINGE IVP PRN (19:43)
[2022-07-22] MEDS ORDERED: *HR* Magnesium Sulfate 1 GM/2 ML VIAL ONE (21:25)
[2022-07-22] MEDS ORDERED: *HR* HYDROMORPHONE 2 MG/ML VIAL ONE (21:50)
[2022-07-22] MEDS ORDERED: Sugammadex Sodium 200 MG/2 ML VIAL IV ONE (21:51)
[2022-07-23] MEDS: Pantoprazole 40 MG VIAL IVP SCH (05:23)
[2022-07-23] MEDS: *HR* HYDROmorphone 2 MG/ML SYRINGE IVP PRN (05:55)
[2022-07-23 07:01] LABS: Basophils % 0.1 %; Hematocrit 26.2 % (35.3-44.9); Immature Granulocytes % 0.6 % (0-4); Lymphocytes # 0.2 K/mcL (0.6-4.6); Lymphocytes % 1.6 %; Mean Corpuscular HGB Conc 31.7 g/dL (31.6-35.5); Mean Corpuscular Hemoglobin 30.6 pg (28.0-33.3); Mean Corpuscular Volume 96.7 fL (83.0-100.0); Mean Platelet Volume 8.9 fL (9.4-12.4); Monocytes # 0.4 K/mcL (0.0-1.3); Monocytes % 2.6 %; Neutrophils # 12.9 K/mcL (1.6-8.9); Platelet Count 282 K/mcL (140-400); Red Blood Count 2.71 M/mcL (3.82-4.97); Segmented Neutrophils % 95.1 %
[2022-07-23 07:03] LABS: BUN/Creatinine Ratio 19 (6-26); Blood Urea Nitrogen 13 mg/dL (8-23); Calcium 8.2 mg/dL (8.6-10.3); Carbon Dioxide 23 mEq/L (23-29); Chloride 108 mEq/L (98-107); Glucose 98 mg/dL (70-105); Osmolality,Calculated 282 (280-300); Potassium 3.2 mEq/L (3.5-5.1); Sodium 136 mEq/L (136-145)
[2022-07-23 07:04] LABS: Hemoglobin 8.3 g/dL (11.5-15.4); White Blood Count 13.6 K/mcL (4.3-11.1)
[2022-07-23] MEDS ORDERED: Ringers Solution, Lactated 1,000 ML IVC SCH (07:05)
[2022-07-23] MEDS ORDERED: Naloxone 0.4 MG/ML INJ IVP PRN (07:05)
[2022-07-23] MEDS ORDERED: *HR* HYDROmorphone 2 MG/ML SYRINGE IVP PRN (07:05)
[2022-07-23] MEDS ORDERED: Piperacillin/Tazobactam 3.375 GM in 0.9 % Sodium Chloride Mini Bag 100 ML IVPB ONE ×2 (07:15→20:27)
[2022-07-23] MEDS: Fluconazole 400 MG/200 ML 400 MG/200 ML BAG IVPB SCH (08:35)
[2022-07-23] MEDS: Ketorolac 30 MG/ML VIAL IVP SCH ×3 (08:36→17:41)
[2022-07-23] MEDS: Pantoprazole 40 MG in 0.9 % Sodium Chloride Mini Bag 100 ML IVC SCH ×2 (08:37→15:55)
[2022-07-23] MEDS ORDERED: Chloraseptic Spray 177 ML BOTTLE MM PRN (09:18)
[2022-07-23] MEDS ORDERED: Saliva Stimulant 44.3ml BOTTLE PO PRN (09:18)
[2022-07-23] MEDS ORDERED: *HR* HYDROmorphone PCA *PREMADE* 20 MG/1MG/ML (20mL) PCA VIAL IVC PRN (09:21)
[2022-07-23] MEDS: 0.9 % Sodium Chloride 1,000 ML IVC SCH ×2 (10:19→20:32)
[2022-07-23] MEDS: Acetaminophen IV 1,000 MG/100 ML BAG IVPB SCH ×2 (11:39→17:32)
[2022-07-23 11:52] LABS: Magnesium 2.1 mg/dL (1.6-2.6); Phosphorous 3.6 mg/dL (2.7-4.5)
[2022-07-23] MEDS ORDERED: D10% in Water 500 ML IVC PRN (12:23)
[2022-07-23] MEDS ORDERED: Clinimix E 5%-15% SOLUTION 2,000 ML with MVI, adult with vitamin K 10 ML IVC SCH (17:00)
[2022-07-23] MEDS ORDERED: Fat Emulsion 250 ML IVPB SCH (17:00)
[2022-07-23] MEDS: Piperacillin/Tazobactam 3.375 GM in 0.9 % Sodium Chloride Mini Bag 100 ML IVPB SCH (17:37)
[2022-07-23] MEDS ORDERED: *HR* Dextrose 50 % in Water (Syg) 50 ML SYRINGE IVP PRN (17:37)
[2022-07-23] MEDS ORDERED: Dextrose Gel 15 GM/37.5 ML TUBE PO PRN ×2 (17:37)
[2022-07-23] MEDS ORDERED: D5% in Water 1,000 ML IVC PRN (17:37)
[2022-07-23 21:50] LABS: Hematocrit 22.3 % (35.3-44.9); Hemoglobin 7.1 g/dL (11.5-15.4); Immature Granulocytes % 0.3 % (0-4); Immature Reticulocyte % 14.1 % (11.0-38.0); Lymphocytes # 0.1 K/mcL (0.6-4.6); Lymphocytes % 1.6 %; Mean Corpuscular HGB Conc 31.8 g/dL (31.6-35.5); Mean Corpuscular Hemoglobin 30.7 pg (28.0-33.3); Mean Corpuscular Volume 96.5 fL (83.0-100.0); Mean Platelet Volume 9.5 fL (9.4-12.4); Monocytes # 0.1 K/mcL (0.0-1.3); Monocytes % 1.4 %; Platelet Count 242 K/mcL (140-400); Red Blood Count 2.31 M/mcL (3.82-4.97); Red Cell Distribution Width 20.3 % (11.5-14.5); Reticulocyte % 4.5 % (1.6-2.8); Segmented Neutrophils % 96.7 %; White Blood Count 8.7 K/mcL (4.3-11.1)
[2022-07-23 21:52] LABS: Neutrophils # 8.4 K/mcL (1.6-8.9)
[2022-07-23 22:08] LABS: % Iron Saturation 9 % (15-50); Iron 16 mcg/dL (50-170); Lactate Dehydrogenase 122 Units/L (140-271); Transferrin 121 mg/dL (203-362)
[2022-07-23 22:16] LABS: Anisocytosis 2+ (Not Present); Microcytosis Present (Not Present); Platelet Estimate Normal (Normal); Poikilocytosis 1+ (Not Present); Polychromasia 1+ (Not Present); Schistocytes 1+ (Not Present)
[2022-07-23 22:23] LABS: Thyroid Stimulating Hormone 0.394 mcIU/mL (0.340-5.600)
[2022-07-23 22:28] LABS: Ferritin > 1500 ng/mL (10-120)
[2022-07-24] MEDS: Ketorolac 30 MG/ML VIAL IVP SCH ×2 (00:17→05:38)
[2022-07-24] MEDS: Acetaminophen IV 1,000 MG/100 ML BAG IVPB SCH ×5 (00:18→23:43)
[2022-07-24] MEDS: Piperacillin/Tazobactam 3.375 GM in 0.9 % Sodium Chloride Mini Bag 100 ML IVPB SCH ×3 (02:06→17:47)
[2022-07-24] MEDS: Pantoprazole 40 MG in 0.9 % Sodium Chloride Mini Bag 100 ML IVC SCH ×3 (02:11→02:17)
[2022-07-24 06:24] LABS: BUN/Creatinine Ratio 27 (6-26); Blood Urea Nitrogen 17 mg/dL (8-23); Carbon Dioxide 20 mEq/L (23-29); Chloride 110 mEq/L (98-107); Glucose 158 mg/dL (70-105); Magnesium 1.9 mg/dL (1.6-2.6); Osmolality,Calculated 287 (280-300); Phosphorous 2.4 mg/dL (2.7-4.5); Potassium 3.1 mEq/L (3.5-5.1); Sodium 136 mEq/L (136-145); Triglycerides 106 mg/dL (< 150)
[2022-07-24] MEDS: Pantoprazole 40 MG VIAL IVP SCH ×2 (06:30→17:46)
[2022-07-24] MEDS: Fluconazole 400 MG/200 ML 400 MG/200 ML BAG IVPB SCH (08:52)
[2022-07-24 09:26] LABS: Hematocrit 21.9 % (35.3-44.9); Hemoglobin 6.9 g/dL (11.5-15.4); Immature Granulocytes % 0.5 % (0-4); Lymphocytes # 0.2 K/mcL (0.6-4.6); Lymphocytes % 1.9 %; Mean Corpuscular HGB Conc 31.5 g/dL (31.6-35.5); Mean Corpuscular Hemoglobin 30.8 pg (28.0-33.3); Mean Corpuscular Volume 97.8 fL (83.0-100.0); Mean Platelet Volume 9.6 fL (9.4-12.4); Monocytes # 0.3 K/mcL (0.0-1.3); Monocytes % 3.3 %; Platelet Count 202 K/mcL (140-400); Red Blood Count 2.24 M/mcL (3.82-4.97); Red Cell Distribution Width 20.4 % (11.5-14.5); Segmented Neutrophils % 94.3 %; White Blood Count 9.2 K/mcL (4.3-11.1)
[2022-07-24 09:39] LABS: Neutrophils # 8.7 K/mcL (1.6-8.9); Platelet Estimate Normal (Normal)
[2022-07-24 11:26] LABS: Hematocrit 21.8 % (35.3-44.9); Hemoglobin 6.8 g/dL (11.5-15.4)
[2022-07-24] MEDS: Insulin LISPRO 300 UNITS/3 ML VIAL SUBQ SCH ×3 (11:58→20:45)
[2022-07-24] MEDS ORDERED: 0.9 % Sodium Chloride 250 ML ONE (12:39)
[2022-07-24] MEDS ORDERED: Clinimix E 5%-15% SOLUTION 2,000 ML with MVI, adult with vitamin K 10 ML IVC SCH (17:00)
[2022-07-24 18:09] LABS: Hematocrit 26.7 % (35.3-44.9)
[2022-07-24 18:10] LABS: Hemoglobin 8.6 g/dL (11.5-15.4)
[2022-07-25] MEDS: Insulin LISPRO 300 UNITS/3 ML VIAL SUBQ SCH ×6 (00:19→20:37)
[2022-07-25] MEDS: Piperacillin/Tazobactam 3.375 GM in 0.9 % Sodium Chloride Mini Bag 100 ML IVPB SCH ×3 (01:41→17:30)
[2022-07-25] MEDS: Pantoprazole 40 MG VIAL IVP SCH ×2 (05:59→17:29)
[2022-07-25] MEDS: Acetaminophen IV 1,000 MG/100 ML BAG IVPB SCH ×4 (06:00→23:30)
[2022-07-25 06:36] LABS: BUN/Creatinine Ratio 26 (6-26); Blood Urea Nitrogen 17 mg/dL (8-23); Calcium 7.5 mg/dL (8.6-10.3); Carbon Dioxide 18 mEq/L (23-29); Chloride 115 mEq/L (98-107); Glucose 123 mg/dL (70-105); Magnesium 1.8 mg/dL (1.6-2.6); Osmolality,Calculated 285 (280-300); Phosphorous 1.7 mg/dL (2.7-4.5); Sodium 136 mEq/L (136-145)
[2022-07-25 06:41] LABS: Eosinophils % 0.3 %; Hematocrit 29.7 % (35.3-44.9); Hemoglobin 9.3 g/dL (11.5-15.4); Immature Granulocytes % 0.3 % (0-4); Lymphocytes # 0.4 K/mcL (0.6-4.6); Mean Corpuscular HGB Conc 31.3 g/dL (31.6-35.5); Mean Corpuscular Hemoglobin 29.5 pg (28.0-33.3); Mean Corpuscular Volume 94.3 fL (83.0-100.0); Mean Platelet Volume 9.3 fL (9.4-12.4); Monocytes # 0.3 K/mcL (0.0-1.3); Monocytes % 3.9 %; Neutrophils # 6.3 K/mcL (1.6-8.9); Platelet Count 224 K/mcL (140-400); Red Blood Count 3.15 M/mcL (3.82-4.97); Red Cell Distribution Width 21.9 % (11.5-14.5); Segmented Neutrophils % 90.5 %
[2022-07-25] MEDS: 0.9 % Sodium Chloride 500 ML IVC SCH (09:21)
[2022-07-25] MEDS: Fat Emulsion 250 ML IVPB SCH (09:21)
[2022-07-25] MEDS: Fluconazole 400 MG/200 ML 400 MG/200 ML BAG IVPB SCH (09:22)
[2022-07-25] MEDS ORDERED: Clinimix E 5%-15% SOLUTION 2,000 ML with MVI, adult with vitamin K 10 ML IVC SCH (17:00)
[2022-07-25] MEDS: Ondansetron 4 MG/2 ML VIAL IVP PRN (22:31)
[2022-07-26] MEDS: Piperacillin/Tazobactam 3.375 GM in 0.9 % Sodium Chloride Mini Bag 100 ML IVPB SCH ×3 (02:08→17:25)
[2022-07-26] MEDS: Insulin LISPRO 300 UNITS/3 ML VIAL SUBQ SCH ×7 (02:39→23:25)
[2022-07-26] MEDS: Pantoprazole 40 MG VIAL IVP SCH ×2 (05:14→17:25)
[2022-07-26] MEDS: Acetaminophen IV 1,000 MG/100 ML BAG IVPB SCH (05:14)
[2022-07-26 06:53] LABS: Basophils % 0.2 %; Eosinophils % 0.7 %; Hematocrit 30.3 % (35.3-44.9); Hemoglobin 9.8 g/dL (11.5-15.4); Immature Granulocytes % 0.2 % (0-4); Lymphocytes # 0.2 K/mcL (0.6-4.6); Lymphocytes % 5.2 %; Mean Corpuscular HGB Conc 32.3 g/dL (31.6-35.5); Mean Corpuscular Hemoglobin 29.6 pg (28.0-33.3); Mean Corpuscular Volume 91.5 fL (83.0-100.0); Mean Platelet Volume 9.2 fL (9.4-12.4); Monocytes # 0.2 K/mcL (0.0-1.3); Monocytes % 4.5 %; Neutrophils # 3.8 K/mcL (1.6-8.9); Platelet Count 212 K/mcL (140-400); Red Blood Count 3.31 M/mcL (3.82-4.97); Red Cell Distribution Width 20.9 % (11.5-14.5); Segmented Neutrophils % 89.2 %; White Blood Count 4.3 K/mcL (4.3-11.1)
[2022-07-26 07:13] LABS: BUN/Creatinine Ratio 36 (6-26); Blood Urea Nitrogen 20 mg/dL (8-23); Calcium 7.8 mg/dL (8.6-10.3); Carbon Dioxide 18 mEq/L (23-29); Chloride 115 mEq/L (98-107); Glucose 119 mg/dL (70-105); Magnesium 1.6 mg/dL (1.6-2.6); Osmolality,Calculated 286 (280-300); Phosphorous 2.7 mg/dL (2.7-4.5); Potassium 3.6 mEq/L (3.5-5.1); Sodium 136 mEq/L (136-145)
[2022-07-26] MEDS: 0.9 % Sodium Chloride 500 ML IVC SCH (09:17)
[2022-07-26] MEDS: Fluconazole 400 MG/200 ML 400 MG/200 ML BAG IVPB SCH (09:17)
[2022-07-26] MEDS: Fat Emulsion 250 ML IVPB SCH (09:18)
[2022-07-26] MEDS: Morphine Sulfate ER (12 HR) 15 MG TABLET.ER PO SCH ×2 (12:20→23:17)
[2022-07-26] MEDS: Cyanocobalamin (B-12) 1,000 MCG TABLET PO SCH (12:20)
[2022-07-26] MEDS: Ondansetron 4 MG/2 ML VIAL IVP PRN (12:28)
[2022-07-26] MEDS: *HR* OxyCODONE Immed Rel 5 MG TABLET PO PRN (16:31)
[2022-07-26] MEDS ORDERED: Clinimix E 5%-15% SOLUTION 2,000 ML with MVI, adult with vitamin K 10 ML IVC SCH (17:00)
[2022-07-26] MEDS: Melatonin 3 MG TABLET PO SCH (23:17)
[2022-07-26] MEDS: Mirtazapine 15 MG TABLET PO SCH (23:17)
[2022-07-27] MEDS: Piperacillin/Tazobactam 3.375 GM in 0.9 % Sodium Chloride Mini Bag 100 ML IVPB SCH ×3 (03:19→18:05)
[2022-07-27] MEDS: *HR* OxyCODONE Immed Rel 5 MG TABLET PO PRN ×2 (03:33→13:18)
[2022-07-27] MEDS: Insulin LISPRO 300 UNITS/3 ML VIAL SUBQ SCH ×6 (05:25→23:45)
[2022-07-27] MEDS: Pantoprazole 40 MG VIAL IVP SCH ×2 (05:26→18:05)
[2022-07-27 06:16] LABS: Basophils % 0.2 %; Eosinophils # 0.1 K/mcL (0.0-0.6); Eosinophils % 1.2 %; Hematocrit 31.3 % (35.3-44.9); Hemoglobin 9.9 g/dL (11.5-15.4); Immature Granulocytes % 0.6 % (0-4); Lymphocytes # 0.4 K/mcL (0.6-4.6); Lymphocytes % 7.2 %; Mean Corpuscular HGB Conc 31.6 g/dL (31.6-35.5); Mean Corpuscular Hemoglobin 28.9 pg (28.0-33.3); Mean Corpuscular Volume 91.5 fL (83.0-100.0); Mean Platelet Volume 9.8 fL (9.4-12.4); Monocytes # 0.2 K/mcL (0.0-1.3); Monocytes % 3.7 %; Neutrophils # 4.2 K/mcL (1.6-8.9); Platelet Count 175 K/mcL (140-400); Red Blood Count 3.42 M/mcL (3.82-4.97); Red Cell Distribution Width 20.2 % (11.5-14.5); Segmented Neutrophils % 87.1 %; White Blood Count 4.9 K/mcL (4.3-11.1)
[2022-07-27 06:36] LABS: BUN/Creatinine Ratio 36 (6-26); Blood Urea Nitrogen 18 mg/dL (8-23); Calcium 7.9 mg/dL (8.6-10.3); Carbon Dioxide 18 mEq/L (23-29); Chloride 112 mEq/L (98-107); Glucose 79 mg/dL (70-105); Magnesium 1.6 mg/dL (1.6-2.6); Osmolality,Calculated 281 (280-300); Phosphorous 2.3 mg/dL (2.7-4.5); Potassium 3.6 mEq/L (3.5-5.1); Sodium 135 mEq/L (136-145)
[2022-07-27] MEDS: Fat Emulsion 250 ML IVPB SCH (08:14)
[2022-07-27] MEDS: Fluconazole 400 MG/200 ML 400 MG/200 ML BAG IVPB SCH (08:20)
[2022-07-27] MEDS: Cholecalciferol (D-3) 1,000 UNIT (25MCG) TABLET PO SCH (08:27)
[2022-07-27] MEDS: Lactobacillus 1 EACH CAP.SPRINK PO SCH (08:27)
[2022-07-27] MEDS: Furosemide 40 MG TABLET PO SCH (08:27)
[2022-07-27] MEDS: Ondansetron 4 MG/2 ML VIAL IVP PRN ×2 (08:39→14:49)
[2022-07-27] MEDS: Morphine Sulfate ER (12 HR) 15 MG TABLET.ER PO SCH ×2 (11:31→23:44)
[2022-07-27] MEDS: Cyanocobalamin (B-12) 1,000 MCG TABLET PO SCH (13:18)
[2022-07-27] MEDS ORDERED: Clinimix E 5%-15% SOLUTION 2,000 ML with MVI, adult with vitamin K 10 ML IVC SCH (17:00)
[2022-07-27] MEDS: Melatonin 3 MG TABLET PO SCH (20:27)
[2022-07-27] MEDS: Mirtazapine 15 MG TABLET PO SCH (20:27)
[2022-07-28] MEDS: Piperacillin/Tazobactam 3.375 GM in 0.9 % Sodium Chloride Mini Bag 100 ML IVPB SCH ×3 (03:10→17:34)
[2022-07-28] MEDS: Insulin LISPRO 300 UNITS/3 ML VIAL SUBQ SCH ×5 (05:30→21:00)
[2022-07-28] MEDS: Pantoprazole 40 MG VIAL IVP SCH ×2 (05:35→17:35)
[2022-07-28 06:35] LABS: Hematocrit 30.4 % (35.3-44.9); Hemoglobin 9.8 g/dL (11.5-15.4); Mean Corpuscular HGB Conc 32.2 g/dL (31.6-35.5); Mean Corpuscular Hemoglobin 29.5 pg (28.0-33.3); Mean Corpuscular Volume 91.6 fL (83.0-100.0); Mean Platelet Volume 10.3 fL (9.4-12.4); Platelet Count 190 K/mcL (140-400); Red Blood Count 3.32 M/mcL (3.82-4.97); Red Cell Distribution Width 20.4 % (11.5-14.5); White Blood Count 4.1 K/mcL (4.3-11.1)
[2022-07-28 06:56] LABS: BUN/Creatinine Ratio 34 (6-26); Blood Urea Nitrogen 21 mg/dL (8-23); Calcium 8.2 mg/dL (8.6-10.3); Carbon Dioxide 20 mEq/L (23-29); Chloride 109 mEq/L (98-107); Glucose 89 mg/dL (70-105); Magnesium 1.7 mg/dL (1.6-2.6); Osmolality,Calculated 284 (280-300); Phosphorous 2.5 mg/dL (2.7-4.5); Potassium 3.3 mEq/L (3.5-5.1); Sodium 136 mEq/L (136-145)
[2022-07-28] MEDS: Fat Emulsion 250 ML IVPB SCH (08:20)
[2022-07-28] MEDS: Fluconazole 400 MG/200 ML 400 MG/200 ML BAG IVPB SCH (08:25)
[2022-07-28] MEDS: Cholecalciferol (D-3) 1,000 UNIT (25MCG) TABLET PO SCH (08:33)
[2022-07-28] MEDS: Furosemide 40 MG TABLET PO SCH (08:33)
[2022-07-28] MEDS: *HR* OxyCODONE Immed Rel 5 MG TABLET PO PRN ×2 (08:33→17:34)
[2022-07-28] MEDS: Lactobacillus 1 EACH CAP.SPRINK PO SCH (08:34)
[2022-07-28] MEDS: Ondansetron 4 MG/2 ML VIAL IVP PRN (10:22)
[2022-07-28] MEDS: Morphine Sulfate ER (12 HR) 15 MG TABLET.ER PO SCH ×2 (11:50→23:59)
[2022-07-28] MEDS: Cyanocobalamin (B-12) 1,000 MCG TABLET PO SCH (11:52)
[2022-07-28] MEDS ORDERED: Morphine Sulfate 2 MG/ML SYRINGE IVP ONE (12:30)
[2022-07-28] MEDS ORDERED: Clinimix E 5%-15% SOLUTION 2,000 ML with MVI, adult with vitamin K 10 ML IVC SCH (17:00)
[2022-07-28] MEDS: Mirtazapine 15 MG TABLET PO SCH (21:01)
[2022-07-28] MEDS: Melatonin 3 MG TABLET PO SCH (21:01)
[2022-07-29] MEDS: Insulin LISPRO 300 UNITS/3 ML VIAL SUBQ SCH ×6 (01:15→21:55)
[2022-07-29] MEDS: Piperacillin/Tazobactam 3.375 GM in 0.9 % Sodium Chloride Mini Bag 100 ML IVPB SCH ×3 (02:26→17:22)
[2022-07-29] MEDS: Pantoprazole 40 MG VIAL IVP SCH ×2 (05:23→17:21)
[2022-07-29 05:46] LABS: Hematocrit 27.1 % (35.3-44.9); Hemoglobin 8.7 g/dL (11.5-15.4); Lymphocytes # 0.4 K/mcL (0.6-4.6); Mean Corpuscular HGB Conc 32.1 g/dL (31.6-35.5); Mean Corpuscular Hemoglobin 29.2 pg (28.0-33.3); Mean Corpuscular Volume 90.9 fL (83.0-100.0); Mean Platelet Volume 10.5 fL (9.4-12.4); Monocytes # 0.1 K/mcL (0.0-1.3); Platelet Count 193 K/mcL (140-400); Red Blood Count 2.98 M/mcL (3.82-4.97); White Blood Count 4.5 K/mcL (4.3-11.1)
[2022-07-29 06:06] LABS: Alanine Aminotransferase 84 Units/L (7-52); Albumin 2.4 g/dL (3.5-5.7); Albumin/Globulin Ratio 0.9 (1.1-2.2); Alkaline Phosphatase 243 Units/L (34-104); Aspartate Amino Transferase 129 Units/L (13-39); BUN/Creatinine Ratio 42 (6-26); Bilirubin,Total 0.5 mg/dL (0.3-1.0); Blood Urea Nitrogen 24 mg/dL (8-23); Calcium 7.9 mg/dL (8.6-10.3); Carbon Dioxide 23 mEq/L (23-29); Chloride 105 mEq/L (98-107); Globulin 2.6 g/dL (2.4-3.5); Glucose 69 mg/dL (70-105); Magnesium 1.9 mg/dL (1.6-2.6); Osmolality,Calculated 276 (280-300); Phosphorous 2.5 mg/dL (2.7-4.5); Potassium 3.5 mEq/L (3.5-5.1); Sodium 132 mEq/L (136-145)
[2022-07-29 06:11] LABS: Eosinophils # 0.3 K/mcL (0.0-0.6); Neutrophils # 3.8 K/mcL (1.6-8.9); Platelet Estimate Normal (Normal)
[2022-07-29] MEDS: Fluconazole 400 MG/200 ML 400 MG/200 ML BAG IVPB SCH (09:05)
[2022-07-29] MEDS: Fat Emulsion 250 ML IVPB SCH (09:06)
[2022-07-29] MEDS: Furosemide 40 MG TABLET PO SCH (09:07)
[2022-07-29] MEDS: Lactobacillus 1 EACH CAP.SPRINK PO SCH (09:07)
[2022-07-29] MEDS: Cholecalciferol (D-3) 1,000 UNIT (25MCG) TABLET PO SCH (09:07)
[2022-07-29] MEDS: Morphine Sulfate ER (12 HR) 15 MG TABLET.ER PO SCH ×2 (10:35→21:56)
[2022-07-29 11:03] LABS: Hematocrit RBC Folate 26.2 %
[2022-07-29] MEDS: Cyanocobalamin (B-12) 1,000 MCG TABLET PO SCH (12:53)
[2022-07-29] MEDS ORDERED: Clinimix E 5%-15% SOLUTION 2,000 ML with MVI, adult with vitamin K 10 ML, ZN/CU/MN/SE... IVC SCH (17:00)
[2022-07-29] MEDS: Mirtazapine 15 MG TABLET PO SCH (21:56)
[2022-07-29] MEDS: Melatonin 3 MG TABLET PO SCH (21:56)
[2022-07-30] MEDS: Piperacillin/Tazobactam 3.375 GM in 0.9 % Sodium Chloride Mini Bag 100 ML IVPB SCH ×3 (02:52→18:06)
[2022-07-30] MEDS: Insulin LISPRO 300 UNITS/3 ML VIAL SUBQ SCH ×7 (02:52→23:39)
[2022-07-30] MEDS: *HR* OxyCODONE Immed Rel 5 MG TABLET PO PRN ×2 (02:55→09:58)
[2022-07-30] MEDS: Pantoprazole 40 MG VIAL IVP SCH ×2 (05:28→18:06)
[2022-07-30 05:39] LABS: Alanine Aminotransferase 83 Units/L (7-52); Albumin 2.5 g/dL (3.5-5.7); Alkaline Phosphatase 232 Units/L (34-104); Aspartate Amino Transferase 73 Units/L (13-39); BUN/Creatinine Ratio 45 (6-26); Bilirubin,Total 0.3 mg/dL (0.3-1.0); Blood Urea Nitrogen 24 mg/dL (8-23); Calcium 8.2 mg/dL (8.6-10.3); Carbon Dioxide 18 mEq/L (23-29); Chloride 107 mEq/L (98-107); Globulin 2.6 g/dL (2.4-3.5); Glucose 130 mg/dL (70-105); Magnesium 1.7 mg/dL (1.6-2.6); Osmolality,Calculated 280 (280-300); Phosphorous 2.5 mg/dL (2.7-4.5); Potassium 3.5 mEq/L (3.5-5.1); Sodium 132 mEq/L (136-145); Total Protein 5.1 g/dL (6.4-8.9); Triglycerides 134 mg/dL (< 150)
[2022-07-30] MEDS ORDERED: Potassium Phosphate 44 MEQ in 0.9 % Sodium Chloride 250 ML IVPB ONE (07:55)
[2022-07-30] MEDS: Lactobacillus 1 EACH CAP.SPRINK PO SCH (10:47)
[2022-07-30] MEDS: Furosemide 40 MG TABLET PO SCH (10:47)
[2022-07-30] MEDS: Cholecalciferol (D-3) 1,000 UNIT (25MCG) TABLET PO SCH (10:47)
[2022-07-30] MEDS: Fluconazole 400 MG/200 ML 400 MG/200 ML BAG IVPB SCH (10:50)
[2022-07-30] MEDS: Morphine Sulfate ER (12 HR) 15 MG TABLET.ER PO SCH ×2 (11:17→23:21)
[2022-07-30] MEDS: Cyanocobalamin (B-12) 1,000 MCG TABLET PO SCH (12:18)
[2022-07-30] MEDS: Melatonin 3 MG TABLET PO SCH (20:17)
[2022-07-30] MEDS: Mirtazapine 15 MG TABLET PO SCH (20:17)
[2022-07-31] MEDS: Piperacillin/Tazobactam 3.375 GM in 0.9 % Sodium Chloride Mini Bag 100 ML IVPB SCH ×3 (01:40→17:15)
[2022-07-31] MEDS: Insulin LISPRO 300 UNITS/3 ML VIAL SUBQ SCH ×5 (04:24→19:57)
[2022-07-31] MEDS: Pantoprazole 40 MG VIAL IVP SCH ×2 (05:48→18:45)
[2022-07-31 08:45] LABS: Basophils % 0.3 %; Eosinophils # 0.1 K/mcL (0.0-0.6); Eosinophils % 3.1 %; Hematocrit 25.7 % (35.3-44.9); Hemoglobin 8.3 g/dL (11.5-15.4); Immature Granulocytes % 0.6 % (0-4); Lymphocytes # 0.2 K/mcL (0.6-4.6); Mean Corpuscular HGB Conc 32.3 g/dL (31.6-35.5); Mean Corpuscular Hemoglobin 29.6 pg (28.0-33.3); Mean Corpuscular Volume 91.8 fL (83.0-100.0); Monocytes # 0.1 K/mcL (0.0-1.3); Monocytes % 1.9 %; Neutrophils # 2.9 K/mcL (1.6-8.9); Platelet Count 208 K/mcL (140-400); Red Cell Distribution Width 20.2 % (11.5-14.5); Segmented Neutrophils % 89.1 %; White Blood Count 3.2 K/mcL (4.3-11.1)
[2022-07-31 09:08] LABS: Alanine Aminotransferase 114 Units/L (7-52); Albumin 2.7 g/dL (3.5-5.7); Albumin/Globulin Ratio 0.9 (1.1-2.2); Alkaline Phosphatase 356 Units/L (34-104); Aspartate Amino Transferase 96 Units/L (13-39); BUN/Creatinine Ratio 26 (6-26); Bilirubin,Total 0.4 mg/dL (0.3-1.0); Blood Urea Nitrogen 15 mg/dL (8-23); Calcium 8.6 mg/dL (8.6-10.3); Carbon Dioxide 20 mEq/L (23-29); Chloride 105 mEq/L (98-107); Globulin 2.9 g/dL (2.4-3.5); Glucose 91 mg/dL (70-105); Magnesium 1.7 mg/dL (1.6-2.6); Osmolality,Calculated 274 (280-300); Phosphorous 2.7 mg/dL (2.7-4.5); Potassium 3.8 mEq/L (3.5-5.1); Sodium 132 mEq/L (136-145); Total Protein 5.6 g/dL (6.4-8.9)
[2022-07-31 09:28] LABS: Anisocytosis 2+ (Not Present); Platelet Estimate Normal (Normal)
[2022-07-31] MEDS: Lactobacillus 1 EACH CAP.SPRINK PO SCH (09:58)
[2022-07-31] MEDS: Furosemide 40 MG TABLET PO SCH (09:58)
[2022-07-31] MEDS: *HR* OxyCODONE Immed Rel 5 MG TABLET PO PRN ×2 (09:58→17:16)
[2022-07-31] MEDS: Fluconazole 400 MG/200 ML 400 MG/200 ML BAG IVPB SCH (09:58)
[2022-07-31] MEDS: Cholecalciferol (D-3) 1,000 UNIT (25MCG) TABLET PO SCH (09:59)
[2022-07-31] MEDS: Morphine Sulfate ER (12 HR) 15 MG TABLET.ER PO SCH (11:46)
[2022-07-31] MEDS: Cyanocobalamin (B-12) 1,000 MCG TABLET PO SCH (11:50)
[2022-07-31] MEDS: Melatonin 3 MG TABLET PO SCH (19:57)
[2022-07-31] MEDS: Mirtazapine 15 MG TABLET PO SCH (19:57)
[2022-08-01] MEDS: Morphine Sulfate ER (12 HR) 15 MG TABLET.ER PO SCH ×3 (00:14→23:54)
[2022-08-01] MEDS: Insulin LISPRO 300 UNITS/3 ML VIAL SUBQ SCH ×6 (00:18→20:02)
[2022-08-01] MEDS: Piperacillin/Tazobactam 3.375 GM in 0.9 % Sodium Chloride Mini Bag 100 ML IVPB SCH ×3 (01:21→17:44)
[2022-08-01] MEDS: Pantoprazole 40 MG VIAL IVP SCH ×2 (05:51→17:22)
[2022-08-01] MEDS: Furosemide 40 MG TABLET PO SCH (10:13)
[2022-08-01] MEDS: Fluconazole 400 MG/200 ML 400 MG/200 ML BAG IVPB SCH (10:13)
[2022-08-01] MEDS: Lactobacillus 1 EACH CAP.SPRINK PO SCH (10:13)
[2022-08-01] MEDS: Cholecalciferol (D-3) 1,000 UNIT (25MCG) TABLET PO SCH (10:13)
[2022-08-01] MEDS: Cyanocobalamin (B-12) 1,000 MCG TABLET PO SCH (12:18)
[2022-08-01 13:08] LABS: Alanine Aminotransferase 119 Units/L (7-52); Albumin 2.6 g/dL (3.5-5.7); Albumin/Globulin Ratio 0.8 (1.1-2.2); Alkaline Phosphatase 403 Units/L (34-104); Aspartate Amino Transferase 93 Units/L (13-39); BUN/Creatinine Ratio 23 (6-26); Bilirubin,Total 0.3 mg/dL (0.3-1.0); Blood Urea Nitrogen 14 mg/dL (8-23); Calcium 8.6 mg/dL (8.6-10.3); Carbon Dioxide 21 mEq/L (23-29); Chloride 105 mEq/L (98-107); Globulin 3.1 g/dL (2.4-3.5); Glucose 89 mg/dL (70-105); Osmolality,Calculated 276 (280-300); Potassium 3.6 mEq/L (3.5-5.1); Sodium 133 mEq/L (136-145); Total Protein 5.7 g/dL (6.4-8.9)
[2022-08-01] MEDS: Ondansetron 4 MG/2 ML VIAL IVP PRN (20:46)
[2022-08-01] MEDS: Mirtazapine 15 MG TABLET PO SCH (20:46)
[2022-08-01] MEDS: Melatonin 3 MG TABLET PO SCH (20:46)
[2022-08-02] MEDS: Insulin LISPRO 300 UNITS/3 ML VIAL SUBQ SCH ×3 (00:49→08:00)
[2022-08-02] MEDS: Pantoprazole 40 MG VIAL IVP SCH (06:16)
[2022-08-02] MEDS: Lactobacillus 1 EACH CAP.SPRINK PO SCH (08:01)
[2022-08-02] MEDS: Furosemide 40 MG TABLET PO SCH (08:01)
[2022-08-02] MEDS: Cholecalciferol (D-3) 1,000 UNIT (25MCG) TABLET PO SCH (08:01)
[2022-08-02 08:46] LABS: Alanine Aminotransferase 102 Units/L (7-52); Albumin 2.7 g/dL (3.5-5.7); Albumin/Globulin Ratio 0.9 (1.1-2.2); Alkaline Phosphatase 391 Units/L (34-104); Aspartate Amino Transferase 71 Units/L (13-39); BUN/Creatinine Ratio 20 (6-26); Bilirubin,Total 0.3 mg/dL (0.3-1.0); Blood Urea Nitrogen 11 mg/dL (8-23); Calcium 8.9 mg/dL (8.6-10.3); Carbon Dioxide 24 mEq/L (23-29); Chloride 104 mEq/L (98-107); Globulin 3.1 g/dL (2.4-3.5); Glucose 80 mg/dL (70-105); Magnesium 1.7 mg/dL (1.6-2.6); Osmolality,Calculated 274 (280-300); Phosphorous 2.8 mg/dL (2.7-4.5); Potassium 3.2 mEq/L (3.5-5.1); Sodium 133 mEq/L (136-145); Total Protein 5.8 g/dL (6.4-8.9)
[2022-08-02] MEDS ORDERED: Acetaminophen 325 MG TABLET PO PRN (10:30)
[2022-08-02] MEDS: Morphine Sulfate ER (12 HR) 15 MG TABLET.ER PO SCH ×2 (11:28→23:25)
[2022-08-02] MEDS: Cyanocobalamin (B-12) 1,000 MCG TABLET PO SCH (13:08)
[2022-08-02] MEDS: *HR* OxyCODONE Immed Rel 5 MG TABLET PO PRN (17:57)
[2022-08-02] MEDS: Melatonin 3 MG TABLET PO SCH (21:09)
[2022-08-02] MEDS: Mirtazapine 15 MG TABLET PO SCH (21:09)
[2022-08-03] MEDS: *HR* OxyCODONE Immed Rel 5 MG TABLET PO PRN ×2 (06:07→20:27)
[2022-08-03] MEDS: Furosemide 40 MG TABLET PO SCH (07:48)
[2022-08-03] MEDS: Lactobacillus 1 EACH CAP.SPRINK PO SCH (07:48)
[2022-08-03] MEDS: Cholecalciferol (D-3) 1,000 UNIT (25MCG) TABLET PO SCH (07:48)
[2022-08-03 09:12] LABS: Alanine Aminotransferase 88 Units/L (7-52); Albumin 2.9 g/dL (3.5-5.7); Albumin/Globulin Ratio 0.9 (1.1-2.2); Alkaline Phosphatase 346 Units/L (34-104); Aspartate Amino Transferase 56 Units/L (13-39); BUN/Creatinine Ratio 18 (6-26); Bilirubin,Total 0.3 mg/dL (0.3-1.0); Blood Urea Nitrogen 10 mg/dL (8-23); Calcium 9.1 mg/dL (8.6-10.3); Carbon Dioxide 25 mEq/L (23-29); Chloride 104 mEq/L (98-107); Globulin 3.1 g/dL (2.4-3.5); Glucose 80 mg/dL (70-105); Magnesium 1.9 mg/dL (1.6-2.6); Osmolality,Calculated 276 (280-300); Phosphorous 2.6 mg/dL (2.7-4.5); Potassium 3.3 mEq/L (3.5-5.1); Sodium 134 mEq/L (136-145)
[2022-08-03] MEDS ORDERED: Potassium Phosphate 44 MEQ in 0.9 % Sodium Chloride 250 ML IVPB ONE (09:19)
[2022-08-03] MEDS: Morphine Sulfate ER (12 HR) 15 MG TABLET.ER PO SCH ×2 (10:49→23:24)
[2022-08-03] MEDS: Loratadine 10 MG TABLET PO SCH (10:49)
[2022-08-03] MEDS: Cyanocobalamin (B-12) 1,000 MCG TABLET PO SCH (12:18)
[2022-08-03] MEDS: Melatonin 3 MG TABLET PO SCH (20:27)
[2022-08-03] MEDS: Mirtazapine 15 MG TABLET PO SCH (20:27)
[2022-08-03] MEDS ORDERED: Potassium Chloride Elixir 20 MEQ/15 ML UDC PO SCH (21:00)
[2022-08-04] MEDS: *HR* OxyCODONE Immed Rel 5 MG TABLET PO PRN ×3 (04:07→21:58)
[2022-08-04 04:53] LABS: Alanine Aminotransferase 87 Units/L (7-52); Albumin 2.9 g/dL (3.5-5.7); Albumin/Globulin Ratio 0.9 (1.1-2.2); Alkaline Phosphatase 305 Units/L (34-104); Aspartate Amino Transferase 60 Units/L (13-39); BUN/Creatinine Ratio 15 (6-26); Bilirubin,Total 0.3 mg/dL (0.3-1.0); Blood Urea Nitrogen 8 mg/dL (8-23); Calcium 9.1 mg/dL (8.6-10.3); Carbon Dioxide 23 mEq/L (23-29); Chloride 104 mEq/L (98-107); Globulin 3.3 g/dL (2.4-3.5); Glucose 78 mg/dL (70-105); Magnesium 1.7 mg/dL (1.6-2.6); Osmolality,Calculated 275 (280-300); Phosphorous 3.1 mg/dL (2.7-4.5); Potassium 3.9 mEq/L (3.5-5.1); Sodium 134 mEq/L (136-145); Total Protein 6.2 g/dL (6.4-8.9)
[2022-08-04] MEDS: Loratadine 10 MG TABLET PO SCH (08:26)
[2022-08-04] MEDS: Cholecalciferol (D-3) 1,000 UNIT (25MCG) TABLET PO SCH (08:26)
[2022-08-04] MEDS: Lactobacillus 1 EACH CAP.SPRINK PO SCH (08:26)
[2022-08-04] MEDS: Furosemide 40 MG TABLET PO SCH (08:26)
[2022-08-04] MEDS: Cyanocobalamin (B-12) 1,000 MCG TABLET PO SCH (12:16)
[2022-08-04] MEDS: Morphine Sulfate ER (12 HR) 15 MG TABLET.ER PO SCH ×2 (12:16→23:52)
[2022-08-04] MEDS: Melatonin 3 MG TABLET PO SCH (21:16)
[2022-08-04] MEDS: Mirtazapine 15 MG TABLET PO SCH (21:17)
[2022-08-05] MEDS: Cholecalciferol (D-3) 1,000 UNIT (25MCG) TABLET PO SCH (09:05)
[2022-08-05] MEDS: Furosemide 40 MG TABLET PO SCH (09:05)
[2022-08-05] MEDS: Loratadine 10 MG TABLET PO SCH (09:05)
[2022-08-05] MEDS: Lactobacillus 1 EACH CAP.SPRINK PO SCH (09:05)
[2022-08-05] MEDS: Morphine Sulfate ER (12 HR) 15 MG TABLET.ER PO SCH ×2 (12:34→23:44)
[2022-08-05] MEDS: Cyanocobalamin (B-12) 1,000 MCG TABLET PO SCH (12:34)
[2022-08-05] MEDS: Mirtazapine 15 MG TABLET PO SCH (20:46)
[2022-08-05] MEDS: *HR* OxyCODONE Immed Rel 5 MG TABLET PO PRN (20:47)
[2022-08-05] MEDS: Melatonin 3 MG TABLET PO SCH (20:47)
[2022-08-06] MEDS: *HR* OxyCODONE Immed Rel 5 MG TABLET PO PRN (02:51)
[2022-08-06] MEDS: Cholecalciferol (D-3) 1,000 UNIT (25MCG) TABLET PO SCH (07:58)
[2022-08-06] MEDS: Furosemide 40 MG TABLET PO SCH (07:58)
[2022-08-06] MEDS: Lactobacillus 1 EACH CAP.SPRINK PO SCH (07:58)
[2022-08-06] MEDS: Loratadine 10 MG TABLET PO SCH (07:58)
[2022-08-06] MEDS ORDERED: Flu Vac QV 22-23 (6MOS UP)/PF 0.5 ML SYRINGE IM ONE (09:20)
[2022-08-06 09:49] LABS: Adenovirus Not Detected (Not Detect); Coronavirus 229E Not Detected (Not Detect); Coronavirus HKU1 Not Detected (Not Detect); Coronavirus NL63 Not Detected (Not Detect); Coronavirus OC43 Not Detected (Not Detect); Human Metapneumovirus Not Detected (Not Detect); Human Rhinovirus/Enterovirus Not Detected (Not Detect); SARS-CoV-2 Not Detected (Not Detect)
[2022-08-06 09:50] LABS: Bordetella Pertussis Not Detected (Not Detect); Chlamydophila pneumoniae Not Detected (Not Detect); Influenza A Subtype 2009 H1 Not Detected (Not Detect); Influenza B Not Detected (Not Detect); Mycoplasma pneumoniae Not Detected (Not Detect); Parainfluenza Virus 1 Not Detected (Not Detect); Parainfluenza Virus 2 Not Detected (Not Detect); Parainfluenza Virus 3 Not Detected (Not Detect); Parainfluenza Virus 4 Not Detected (Not Detect); Respiratory Syncytial Virus Not Detected (Not Detect)
[2022-08-06 10:21] VITALS: BP 114/68; PULSE 86; TEMP 98.1; O2SAT 97
[2022-08-06] MEDS: Morphine Sulfate ER (12 HR) 15 MG TABLET.ER PO SCH (11:09)
== END 2022-08-06 11:41 | DRG 327 ==
LOC: EMEROOARM 08:15 → SUATTDRO 13:15 → 3ANU 13:15
PROVIDERS: ADMIT Internal Medicine; ATTEND Family Medicine